=== PATIENT | male | born 1940 | race Caucasian/White ===

== ENCOUNTER 2017-04-21 14:00 | Inpatient (IN) | payer MEDICARE ==
[~2017-04-21] VITALS: Ht 175.3 cm; Wt 118.2 kg
[2017-04-21] MEDS ORDERED: ASPI325T PO (14:57)
[2017-04-21] MEDS ORDERED: LISI10TA2 PO (14:57)
[2017-04-21] MEDS ORDERED: CRES40TA PO (14:57)
[2017-04-21 16:02] LABS: METHADONE URINE NEGATIVE (NEGATIVE)
[2017-04-21 16:24] LABS: MEAN CORPUSCULAR HEMOGLOBIN 31.8 pg (27.0-33.0); MEAN CORPUSCULAR VOLUME 93.4 fl (80.0-96.0); RED CELL DISTRIBUTION WIDTH 12.3 % (11.5-14.5)
[2017-04-21 16:55] LABS: ALBUMIN 4.1 GM/DL (3.2-5.2); ALBUMIN/GLOBULIN RATIO 1.64 (1.00-1.93); ALKALINE PHOSPHATASE 61 U/L (45-117); ALT/SGPT 34 U/L (12-78); ANION GAP 8 MEQ/L (8-16); AST/SGOT 24 U/L (15-37); BILIRUBIN,DIRECT 0.2 MG/DL (0.0-0.2); BILIRUBIN,TOTAL 0.8 MG/DL (0.2-1.0); BLOOD UREA NITROGEN 16 MG/DL (7-18); CALCIUM LEVEL 8.8 MG/DL (8.8-10.2); CARBON DIOXIDE LEVEL 29 MEQ/L (21-32); CHLORIDE LEVEL 108 MEQ/L (98-107); CREATININE FOR GFR 1.03 MG/DL (0.70-1.30); GLOMERULAR FILTRATION RATE > 60.0 (>42); GLUCOSE, FASTING 92 MG/DL (83-110); POTASSIUM SERUM 4.4 MEQ/L (3.5-5.1); SODIUM LEVEL 145 MEQ/L (136-145); TOTAL PROTEIN 6.6 GM/DL (6.4-8.2)
[2017-04-21] MEDS ORDERED: ALEV220T22 PO (18:42)
[2017-04-21 19:06] VITALS: BP 151/67
[2017-04-21] MEDS ORDERED: MAALOX 30 ML SUSP *UDC PO PRN (20:30)
[2017-04-21] MEDS ORDERED: MOM 30ML SUSPENSION UDC PO PRN (20:30)
[2017-04-21] MEDS ORDERED: NITROGLYCERIN 0.4 MG SUBL TABLET SL PRN (20:30)
[2017-04-22 06:28] VITALS: BP 169/86
[2017-04-22] MEDS: ASPIRIN 325 MG TAB PO SCH (08:38)
[2017-04-22] MEDS: hydroCHLOROthiazide 12.5 MG CAPSULE PO SCH (08:38)
[2017-04-22] MEDS: LISINOPRIL 10 MG TAB PO SCH (08:38)
[2017-04-22] MEDS: ROSUVASTATIN 10 MG TAB (CRESTOR) PO SCH (08:39)
--- NOTE | 2017-04-22 10:31 | HPEPDOC ---
Medical History and Physical Date of Admission Apr 21, 2017 at 17:50 History and Physical PCP: Dr Remi Meyer [facility] Stock Raiser. Dr Rose ATTENDING: Dr. Alan Swain HPI: 76yoM admitted to [facility] for unspecified depressive disorder, being medically examined today. Patient states he injured his back in early April. Since April 10 he has been seeing a chiropractor which she states has been helping. Towards persistent low back pain. It radiates to the right hip area. He denies radiation of pain down the legs. Sometimes he feels weak in his legs. He denies numbness or tingling. He denies falls. He ambulates with assistance of a cane. He does not report neck pain. No weakness, numbness, or tingling in upper extremities. Denies any fevers, chills, weakness, fatigue, HAN, CP, SOB, cough, palpitations , abdominal pain, N/V/D or changes in bowel or bladder habits. PMHx: Hypertension Hyperlipidemia Osteoarthritis. Follows with [facility]. History of prostate cancer Depression CAD/DC/stent. CANNY. Poor dentition Unsteady gait, uses cane KAREN/CPAP Obesity. 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 Tobacco use: Denies ETOH: Denies Illicit Drugs: Denies IV Drug Use: Denies Tattoos done unprofessionally: Denies FAMHX: Mother: , CVA Father: , DC/CAD Siblings: One brother prostate cancer. Children: Alive, well Unexpected deaths due to medical reasons: None. ROS: As noted in HPI, otherwise 11pt ROS of systems reviewed and unremarkable. PE: GEN: 76 yo M, appears stated age. Well-nourished, well developed. No acute distress. Alert and oriented x 3. Pt is agitated at times. HEENT: Normocephalic, atraumatic. Pupils are equal, round, and reactive to light. Extraocular movements are intact. No nystagmus appreciated. Sclera are nonicteric. Conjunctiva without injection. Nose midline. Nasal turbinates without bogginess. EACs both patent BL. TMs both visualized and harry with good cone of light, no bulging or erythema. No facial asymmetry. Moist mucous membranes. Dentition poor. Pharynx pink and moist, no cobblestoning. Neck supple , trachea midline. No lymphadenopathy or thyromegaly appreciated. CHEST: Regular rate and rhythm, +S1, +S2 LUNGS: Clear to auscultation bilaterally. No wheezes, rales, or rhonchi. Breathing appears symmetric and easy. Patient is speaking in full sentences. No accessory muscle use. ABD: Round, soft, non-tender, non-distended. +Bowel sounds throughout. No rebound or guarding. No costovertebral angle tenderness. EXT: Varicose veins noted. Trace lower extremity edema appreciated left lower extremity. SKIN: [place], dry, warm. Capillary refill <2sec. No rashes. NEURO: Alert and oriented x 3. Cranial nerves III-XII are intact. No focal deficits appreciated. He is currently ambulating without any assistive devices. EKG: Pending. A&P: 76yoM admitted to [facility] for unspecified depressive disorder 1. Psych. Plan per Psychiatry. Obtain baseline EKG to assure the safety of psychiatric medications as they can prolong the QT interval. 2. CAD/DC/stent. Continue aspirin 325 mg daily. Continue statin. Continue Outpatient follow-up with cardiology. 3. Hypertension. Low-sodium diet. Continue lisinopril 10 mg daily, hydrochlorothiazide 12.5 mg daily. Patient appears compensated at this time. 4. Follow up with PCP on discharge. 5. Chronic venous insufficiency. Apply FLACA stockings if okay with psychiatry attending. 6. Poor dentition. Follow-up with dental provider at discharge. 7. Hyperlipidemia. Continue Crestor 40 mg daily. 8. Chronic back pain/right hip pain. Check x-ray of lumbosacral spine and right hip. Tylenol 650 mg every 6 hours as needed. Continue naproxen 500 mg twice a day as needed. 9. Osteoarthritis. Continue naproxen as above. 10. KAREN. Continue CPAP with home settings. 11. Obesity. BMI 38.5. Complicates care. FBS and TSH are noted within normal limits. 12. Unsteady gait. Patient ambulates with assistance of a cane at home. Request PT evaluation 13. Staff member Tanmay present throughout exam. Vital Signs Vital Signs Date Time Temp Pulse Resp B/P (MAP) Pulse Ox O2 Delivery O2 Flow Rate FiO2 04/22/17 08:38 169/86 04/22/17 06:28 98.7 58 18 04/21/17 19:06 97 Room Air Laboratory Data Labs 24H Laboratory Tests 2 04/21/17 14:30: Urine Amphetamines Screen NEGATIVE, Urine Benzodiazepines Screen NEGATIVE, Urine Opiates Screen NEGATIVE, Urine Methadone Screen NEGATIVE, Urine Barbiturates Screen NEGATIVE, Urine Phencyclidine Screen NEGATIVE, Urine Cocaine Metabolite Screen NEGATIVE, Urine Cannabinoids Screen NEGATIVE 04/21/17 16:04: Anion Gap 8, Glomerular Filtration Rate > 60.0, Calcium Level 8.8, Aspartate Amino Transf (AST/SGOT) 24, Alanine Aminotransferase (ALT/SGPT) 34, Alkaline Phosphatase 61, Total Bilirubin 0.8, Direct Bilirubin 0.2, Total Protein 6.6, Albumin 4.1, Albumin/Globulin Ratio 1.64, Thyroid Stimulating Hormone (TSH) 0.709, Salicylates Level < 1.7L, Acetaminophen Level < 2.0L, Ethyl Alcohol Level < 0.003 CBC/BMP Laboratory Tests 04/21/17 16:04 Red Blood Count 4.60, Mean Corpuscular Volume 93.4, Mean Corpuscular Hemoglobin 31.8, Mean Corpuscular Hemoglobin Concent 34.0, Red Cell Distribution Width 12.3 Home Medications Scheduled (Lisinopril/Hydrochlorothi 10-12.5 mg) 1 Tab Tab, 1 TAB PO DAILY LAST FILLED NOVEMBER 2016 AT [facility] Aspirin (Aspirin) 325 Mg Tab, 325 MG PO DAILY Rosuvastatin Calcium (Crestor) 40 Mg Tab, 40 MG PO DAILY LAST FILLED APR 2016 AT [facility] Scheduled PRN (Aleve Arthritis) 220 Mg Tab, 440 MG PO for ARTHRITIS Allergies Coded Allergies: Thimerosal (Verified Allergy, Intermediate, hives, 04/21/17) [place] (Verified Allergy, Unknown, diaphragm contractions, 04/21/17) Penicillins (Unverified Adverse Reaction, Unknown, "DOESN'T WORK", 04/21/17 ) Ina Rachel Apr 22, 2017 10:31
[2017-04-22] MEDS: NAPROXEN 250 MG TAB PO PRN ×2 (11:54→20:12)
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
--- NOTE | 2017-04-22 15:34 | REP ---
LUMBOSACRAL SPINE: Three views of the lumbosacral spine are performed in the AP and lateral projections. There is no compression fracture. There is normal lumbar lordosis and alignment. There is moderate diffuse spurring. There is moderate disc space narrowing, subchondral sclerosis, and vacuum phenomenon at L2-3 with mild disc space narrowing and vacuum at L4-5. There is mild narrowing and subchondral sclerosis at L5-S1 with sclerosis at the facet joints at that level. The posterior elements are intact. IMPRESSION: Diffuse degenerative changes without evidence of fracture or dislocation. Signed by Blanco Interiano MD 04/22/2017 04:47 P
--- NOTE | 2017-04-22 15:36 | REP ---
RIGHT HIP: Two views of the right hip are performed. I see no evidence of acute fracture or dislocation. There is a total hip prosthesis which appears to be in good position with no abnormal surrounding lucency. IMPRESSION: Right hip prosthesis. No fracture or dislocation. Signed by Blanco Interiano MD 04/22/2017 04:48 P
[2017-04-22 18:00] VITALS: BP 120/60
[2017-04-22] MEDS: traZODone 50 MG TAB PO PRN (21:57)
[2017-04-23 06:49] VITALS: BP 130/86
[2017-04-23] MEDS: ASPIRIN 325 MG TAB PO SCH (08:33)
[2017-04-23] MEDS: LISINOPRIL 10 MG TAB PO SCH (08:33)
[2017-04-23] MEDS: ROSUVASTATIN 10 MG TAB (CRESTOR) PO SCH (08:33)
[2017-04-23] MEDS: hydroCHLOROthiazide 12.5 MG CAPSULE PO SCH (08:34)
[2017-04-23] MEDS: NAPROXEN 250 MG TAB PO PRN ×2 (11:40→22:01)
--- NOTE | 2017-04-23 12:02 | ECGEPIP ---
Stationary ECG Study [facility] Test Date: 2017-04-22 Pat Name: RADHA BERNSTEIN Department: Room: [place] [address] Gender: M Accreditation Specialist: FREDERIC : 1940 Requested By: Ina Rachel Order Number: [id number] Reading MD: France Montgomery Measurements Intervals [place] Rate: 71 P: 10 OK: 150 QRS: -56 QRSD: 141 T: -7 QT: 409 QTc: 446 Interpretive Statements SINUS RHYTHM RIGHT BUNDLE BRANCH BLOCK LEFT ANTERIOR FASCICULAR BLOCK SIMILAR 01/21/16 Electronically Signed On 04-23-2017 12:01:59 EDT by France Montgomery
[2017-04-23 18:00] VITALS: BP 122/50
[2017-04-23] MEDS: traZODone 50 MG TAB PO PRN (22:00)
[2017-04-24 06:58] VITALS: BP 126/74
[2017-04-24] MEDS: ASPIRIN 325 MG TAB PO SCH (08:00)
[2017-04-24] MEDS: ROSUVASTATIN 10 MG TAB (CRESTOR) PO SCH (08:00)
[2017-04-24] MEDS: hydroCHLOROthiazide 12.5 MG CAPSULE PO SCH (08:00)
[2017-04-24] MEDS: LISINOPRIL 10 MG TAB PO SCH (08:00)
[2017-04-24 18:00] VITALS: BP 110/62
[2017-04-24] MEDS: traZODone 50 MG TAB PO PRN (21:49)
[2017-04-24] MEDS: NAPROXEN 250 MG TAB PO PRN (21:49)
[2017-04-25 06:34] VITALS: BP 118/72
[2017-04-25] MEDS ORDERED: CitaloPRAM (CeleXA) 20 MG TAB PO SCH (09:00)
[2017-04-25 09:49] VITALS: BP 118/72
[2017-04-25] MEDS: hydroCHLOROthiazide 12.5 MG CAPSULE PO SCH (09:49)
[2017-04-25] MEDS: ROSUVASTATIN 10 MG TAB (CRESTOR) PO SCH (09:49)
[2017-04-25] MEDS: ASPIRIN 325 MG TAB PO SCH (09:49)
[2017-04-25] MEDS: LISINOPRIL 10 MG TAB PO SCH (09:49)
--- NOTE | 2017-04-25 09:56 | MHIPN ---
DATE: 04/23/2017 CHIEF COMPLAINT: Feels stressed. SUBJECTIVE: Seen for followup, in the presence of staff. Says he feels stressed and that he ought not to be here, and that he has never been suicidal, that he has never intended harming himself. He related some of the events that lead to his being hospitalized, and difficulty with his partner, his financial commitments to daughter as well. He also says that he understands his daughter may be traveling here from [place], he has not seen her for 5 years. They have been estranged. He says he has supportive friends if it came to it. He is not sure if he will be able to return to his partner's place. She has not seen him since he has been here. He spoke of disputes that they has have, reiterating those outlined in the chart, when Nicole Garcia, nurse practitioner had interviewed him. Collateral information was also obtained, per that note, from his partner. Says sleep has been difficult because of the mattress. Appetite is fair. MENTAL STATUS EXAMINATION: He is fairly neat. He is cooperative. He appears overweight. No psychomotor retardation. He is coherent, mildly irritable at times, but generally appears relaxed. Denies any suicidal thoughts or intents. No homicidal ideas or intents. No evidence for any psychosis. Cognition is grossly intact. Judgment, insight are questionable. ASSESSMENT: Unspecified depressive disorder. Rule out major depressive disorder. It is possible he has difficulties with impulses. Displays narcissistic personality traits, the possibility of personality disorder also needs to be considered. PLAN: Continue current care and observations, he is quite okay with us obtaining further collateral information from his partner, or his daughter. He is to be encouraged to participate in activities in the unit, and collateral information, and assessment regarding his ability to maintain his safety, would be imperative prior to discharge. He is not sure if he is able to return to his partner's place. He does say if she agreed to start all over again, he would do that readily. VITAL SIGNS: Blood pressure 130/86, impulse 97, temperature 98. Further recommendations will be made depending on the clinical picture.
[2017-04-25] MEDS ORDERED: TRAZO50TA PO (12:23)
--- NOTE | 2017-04-25 15:06 | MHDSPDOC ---
[facility] Discharge Summary Discharge Summary DATE OF ADMISSION: Apr 21, 2017 at 17:50 DATE OF DISCHARGE: Apr 25, 2017 DISCHARGE DIAGNOSES: Impulse control disorder depressive disorder unspecified personality disorder with narcissistic traits. 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 CONSULTANTS INVOLVED: george TREATMENT AND PROGRESS ON THE UNIT : Pt made it quite clear from the beginning that he files lawsuits against everyone he disagrees with and our organization is no exception. 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 He indicated he had not been here for 24 hours and could already identify which staff were good and which were not. He had a litany of reasons the woman he lived with should not ask him to leave and also made it clear he had no intentions of harming himself or anyone else. pt was asked to secure housing prior to Tuesday so on Tuesday (04/25) he could be discharged. Pt declined medications stating they don't work and complained about pharmacy practices. He stated he head been prescribed medications but stopped them abruptly 2 months ago when dissatisfied with the pharmacy. ([facility]). [facility] and was unhappy with their recommendations and would not return. HOSPITAL COURSE: Mr. Lezama attended programing, got along well with others and on Tuesday described being here as "being on a vacation". He requested a neutral 3rd alliance party to come in and mediate his dispute with his house mate. He was informed that safety is our primary concern and was encouraged to secure a place to go. He said he would go to a Hotel but he didn't know which one. He was asked to inform commercial loan underwriter when he decided. When KSP spoke with him he said he would be staying with friends in [facility] and signed a release so we could verify this. The owners of the home confirmed there are weapons in their house but they are stored in a gun safe with a combination lock and the only way to get in is with the combination. Pt does not have that information and Ms. Danielson was certain Mr. Santizo would not be able to access them. She said only her knows the combination. She added they have known each other for many years and she believes all of this is an unfortunate incident and he made this statement "in the heat of the moment". Ms. Danielson added, "he would never do anything like that". DISCHARGE ASSESSMENT: Pt is not a DTS or DTO. Pt is likely suffering from depression and should not have stopped his medications. Pt is now rethinking this and gave commercial loan underwriter permission to restart his meds. Wellbutrin XL 150 mg 3 tabs in a.m. ordered for 7 days with 5 refills and Citalopram 20 mg q a.m. for 7 days with 5 refills sent to his pharmacy. He was asked to consider therapy but he stated he did not need it. Powerbuilder explained if he changed his mind he can contact [facility] or return to the [place]. Pt verbalized understanding of these things. MENTAL STATUS EXAMINATION ON DISCHARGE: Patient is a 76-year old male, who is medium frame, short stature, uses cane, white hair and glasses. Speech is spontaneous. Language skills are good. Thought processes including: goal directed. Thought content: appropriate. Abstract reasoning, and computation: good. Description of associations: good. Description of abnormal or psychotic thoughts: none. Judgment: fair Insight: poor Orientation to all spheres is good. Recent and remote memory: intact. Attention span and concentration: good. Fund of knowledge: Full. Mood: anxious. Affect: congruent MEDICATIONS ON DISCHARGE: pt stopped all meds 2 months prior to hospitalization. Did not see any benefit in them. Was not prescribed any while here as he did not want to take any. He did make use of trazodone and that prescription was sent to [facility]. trazodone 50 mg prn insomnia. PLAN/FOLLOWUP ARRANGEMENTS: It is recommended pt seek therapy for his problems related to relationships with family and friends. Powerbuilder contacted Patrica Danielson, friend at [phone] who indicated Mr. Santizo was planning to stay with her and her at their home follow his discharge from the hospital. That is fine with them. She states they have known each other for years. They reside in [facility]. Marylou Rose was also contacted regarding pts discharge to advise her he would be leaving the hospital since she had verbalized some concern over her safety related to her relationship with pt. According to the DCP who spoke with Ms. Rose, she has had contact with the [facility] about eviction of Mr. Lezama. It is our understanding he plans on arriving at Ms. Rose' home with a moving vehicle and a friend and will remove his personal belongings from her home. The amount of time spent in the coordination of care for this patient was approximately 30 minutes. Vital Signs/I&Os Vital Signs Date Time Temp Pulse Resp B/P (MAP) Pulse Ox O2 Delivery O2 Flow Rate FiO2 04/25/17 09:49 118/72 04/25/17 06:34 97.3 60 18 04/23/17 09:26 Room Air 04/21/17 19:06 97 Medications Scheduled (Lisinopril/Hydrochlorothi 10-12.5 mg) 1 Tab Tab, 1 TAB PO DAILY, (Reported) LAST FILLED NOVEMBER 2016 AT [facility] Aspirin (Aspirin) 325 Mg Tab, 325 MG PO DAILY, (Reported) Bupropion Hcl (Bupropion HCl Xl) 150 Mg Tab, 450 MG PO QAM for DEPRESSION for 7 Days, #21 Citalopram Hydrobromide (Celexa) 20 Mg Tab, 20 MG PO QAM for ANXIETY for 7 Days , #7 Rosuvastatin Calcium (Crestor) 40 Mg Tab, 40 MG PO DAILY, (Reported) LAST FILLED APR 2016 AT [facility] Scheduled PRN (Aleve Arthritis) 220 Mg Tab, 440 MG PO for ARTHRITIS, (Reported) Trazodone HCl (Trazodone HCl) 50 Mg Tab, 50 MG PO QHSP PRN for INSOMNIA for 7 Days, #7 take only when needed for insomnia Allergies Coded Allergies: Thimerosal (Verified Allergy, Intermediate, hives, 04/21/17) [place] (Verified Allergy, Unknown, diaphragm contractions, 04/21/17) Penicillins (Unverified Adverse Reaction, Unknown, "DOESN'T WORK", 04/21/17 ) Nicole Garcia Apr 25, 2017 15:06
[2017-04-25] MEDS ORDERED: BUPR150T3 PO (15:48)
[2017-04-25] MEDS ORDERED: CELE20TA PO (15:48)
--- NOTE | 2017-04-26 06:41 | MHIPN ---
DATE OF VISIT: 04/24/2017 CHIEF COMPLAINT: Says he feels okay. SUBJECTIVE: Seen for followup, in the presence of staff. Says he feels okay, and that he had a better night, and he slept reasonably well. Appetite has been okay. He spoke of trying to deal with various concerns he has since the breakup of his relationship, says he has obtained various numbers from his phone and will be planning to contact various people, including his research attorney who he says he has been in touch with, all related to the dispute between him and his partner. He suggests he will be taking matters further, through the courts, should he find that his property and belongings have been interfered with without his permission. 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 MENTAL STATUS EXAM: He is neat, he is cooperative, he is coherent, no agitation, no psychomotor retardation. He is less irritable than when seen yesterday, with relatively broad affect. He denies any suicidal thoughts or intents. No homicidal ideas or intents. Currently no evidence of any psychosis. Cognition is grossly intact. Judgment is fair. ASSESSMENT: Other specified depressive disorder, rule out major depressive disorder. PLAN: Continue current care and observation, obtain collateral information as necessary. He had questions as to whether anyone had spoken with his ex-partner. I informed him that the nurse practitioner's note indicates that the staff had, in fact, spoken with her, and had noted her version of events. We did not go into details, but there are discrepancies between his perception and hers. He wondered if there was a meeting being arranged regarding these disputes. I informed him I was not aware of that, but that if one were, discharge planning and the treatment team will inform him tomorrow (tomorrow is Tuesday) and that it ought to take place only with his consent. He is made aware, it is emphasized prior to this discharge the treatment team, the assigned clinicians and the discharge plan will be assessing the safe discharge. He says if it came to it, he could stay with friends. This is to be explored further. His questions are answered. VITAL SIGNS: Blood pressure 126/74, pulse 100, temperature 97.4.
[2017-04-26] MEDS ORDERED: buPROPion **XL** TABLET 150MG (WELLBUTRIN XL) PO SCH ×2 (09:00)
[2017-04-26] MEDS ORDERED: CitaloPRAM (CeleXA) 20 MG TAB PO SCH (09:00)
== END 2017-04-25 16:00 | disposition home or self-care (01) | DRG 886 ==
LOC: M ED 14:00 → M ED INP 17:50 → M PSY 19:00
PROVIDERS: ADMIT Psychiatry & Neurology Psychiatry; ATTEND Psychiatry & Neurology Psychiatry
DX: F63.9 Impulse disorder, unspecified (principal); F32.9 Major depressive disorder, single episode, unspecified; F60.81 Narcissistic personality disorder; Z79.899 Other long term (current) drug therapy; Z79.82 Long term (current) use of aspirin; Z88.0 Allergy status to penicillin; Z88.8 Allergy status to other drugs, medicaments and biological substances; Z91.018 Allergy to other foods; I10 Essential (primary) hypertension; E78.5 Hyperlipidemia, unspecified; M19.90 Unspecified osteoarthritis, unspecified site; I25.10 Atherosclerotic heart disease of native coronary artery without angina pectoris; I25.2 Old myocardial infarction; E66.9 Obesity, unspecified; G47.33 Obstructive sleep apnea (adult) (pediatric); R26.89 Other abnormalities of gait and mobility; Z68.38 Body mass index [BMI] 38.0-38.9, adult; Z85.46 Personal history of malignant neoplasm of prostate; M54.5 Low back pain; I87.2 Venous insufficiency (chronic) (peripheral)

== ENCOUNTER 2017-04-27 13:53 | Emergency (ER) | payer MEDICARE ==
[~2017-04-27] VITALS: Ht 177.8 cm; Wt 115.9 kg
[~2017-04-27 13:53] MED LIST: ALEV220T22 PO; ASPI325T PO; BUPR150T3 PO; CELE20TA PO; CRES40TA PO; LISI10TA2 PO; TRAZO50TA PO
[2017-04-27 16:40] VITALS: BP 128/78
== END 2017-04-27 16:57 | disposition home or self-care (01) ==
LOC: M ED 13:53
DX: Z04.8 Encounter for examination and observation for other specified reasons (principal); F22 Delusional disorders; E11.9 Type 2 diabetes mellitus without complications; I25.9 Chronic ischemic heart disease, unspecified; Z85.46 Personal history of malignant neoplasm of prostate

== ENCOUNTER → 2018-03-24 | Outpatient (CLI) | payer MEDICARE ==
[2018-03-24 15:45] LABS: PSA SCREENING 4.24 NG/ML (< 4.0)
== END ==
LOC: M LAB 14:38
DX: C61 Malignant neoplasm of prostate (principal)
CPT/HCPCS: G0103

== ENCOUNTER → 2019-04-24 | Outpatient (CLI) | payer MEDICARE ==
[~2019-04-24] MED LIST changes: +ASPI-1 PO; -ASPI325T PO; +LISI10TA15 PO; -LISI10TA2 PO; +TRAZ1TAB10 PO; -TRAZO50TA PO
[2019-04-24 16:12] LABS: CALCIUM LEVEL 9.2 MG/DL (8.8-10.2); CREATININE FOR GFR 1.43 MG/DL (0.70-1.30); GLOMERULAR FILTRATION RATE 51.2 (>42); POTASSIUM SERUM 4.3 MEQ/L (3.5-5.1)
== END ==
LOC: M LAB 15:07
PROVIDERS: ATTEND General Practice
DX: I11.9 Hypertensive heart disease without heart failure (principal)

== ENCOUNTER → 2020-03-06 | Outpatient (CLI) | payer MEDICARE ==
[2020-03-06 11:24] LABS: ALBUMIN 3.8 GM/DL (3.2-5.2); ALT/SGPT 47 U/L (12-78); BILIRUBIN,TOTAL 0.6 MG/DL (0.2-1.0); BLOOD UREA NITROGEN 18 MG/DL (7-18); CALCIUM LEVEL 8.8 MG/DL (8.8-10.2); CARBON DIOXIDE LEVEL 27 MEQ/L (21-32); CHLORIDE LEVEL 108 MEQ/L (98-107); CHOLESTEROL LEVEL 176 MG/DL (<200); CREATININE FOR GFR 1.15 MG/DL (0.70-1.30); GLOMERULAR FILTRATION RATE > 60.0 (>42); GLUCOSE, FASTING 82 MG/DL (70-100); HDL CHOLESTEROL 51 MG/DL (>40); LDL CHOLESTEROL 100 MG/DL (<100); NON-HDL-C 125 MG/DL; POTASSIUM SERUM 4.2 MEQ/L (3.5-5.1); PROSTATIC SPECIFIC AG MONITOR 4.63 NG/ML (< 4.00); SODIUM LEVEL 141 MEQ/L (136-145); TOTAL PROTEIN 6.3 GM/DL (6.4-8.2); TRIGLYCERIDES LEVEL 123 MG/DL (<150)
[2020-03-11 16:09] LABS: CHROMIUM PLASMA 0.8 ug/L (0.1-2.1)
== END ==
LOC: M LAB 10:01
PROVIDERS: ATTEND General Practice
DX: Z96.649 Presence of unspecified artificial hip joint (principal); Z79.899 Other long term (current) drug therapy

== ENCOUNTER → 2020-04-09 | Outpatient (CLI) | payer MEDICARE | LOC: M LAB 13:25 | PROVIDERS: ATTEND Orthopaedic Surgery | DX: M25.551 Pain in right hip (principal); Z96.649 Presence of unspecified artificial hip joint ==

== ENCOUNTER → 2020-05-15 | Outpatient (CLI) | payer MEDICARE | LOC: M LAB 15:36 | PROVIDERS: ATTEND Orthopaedic Surgery | DX: M25.551 Pain in right hip (principal); Z96.649 Presence of unspecified artificial hip joint ==

== ENCOUNTER → 2020-11-17 | Outpatient (CLI) | payer MEDICARE ==
[~2020-11-17] MED LIST changes: +BUPR150T12 PO; -BUPR150T3 PO
--- NOTE | 2020-11-17 16:29 | REP ---
INDICATION: CKD STAGE 3. COMPARISON: None. TECHNIQUE: Multiple ultrasonographic images of the kidneys. FINDINGS: The right kidney measures 11.7 x 4.9 x 6.5 cm. The left kidney measures 11.2 x 5.2 x 6.1 cm. The kidneys are normal size. Renal cortical echogenicity is increased bilaterally. This is compatible with medical renal disease. There is no hydronephrosis on the right or the left. There are no renal calculi in the left or the right. There is a cyst medially in the right kidney measuring up to 2.0 cm. There is a cyst medially in the left kidney measuring up to 1.5 cm. There is a cyst laterally in the left kidney measuring up to 1.6 cm. No solid renal masses are identified. IMPRESSION: The kidneys are normal size. There is bilateral renal cortical echogenicity compatible with medical renal disease. There are bilateral renal cysts as described. No renal cysts solid masses are identified. No renal calculi are identified. No hydronephrosis is identified. <Electronically signed by Blanco Burch > 11/17/20 [id number]
--- NOTE | 2020-11-17 17:19 | REP ---
INDICATION: CKD STAGE 3. COMPARISON: None. TECHNIQUE: Multiple ultrasonographic images of the bladder. FINDINGS: The prevoid bladder measures 7.4 x 6.2 x 5.2 cm for a volume 156 mL. The patient was able to void and the postvoid bladder volume is in the same as the prevoid volume. The prevoid bladder residual is 100%. Bladder wall thickness is a 4.7 mm. The bladder wall appears diffusely thickened. This is nonspecific and could be from incomplete bladder distention, inflammation or neoplasm. With the Doppler assessment we are unable to identify right or left ureteral jets into the bladder. IMPRESSION: Incomplete bladder distention. 100% bladder postvoid residual. Bladder wall is diffusely thickened. This is nonspecific as described. Ureteral jets into the bladder could not be identified. <Electronically signed by Blanco Burch > 11/17/20 [id number]
== END ==
LOC: M RAD 12:03
PROVIDERS: ATTEND Internal Medicine Nephrology
DX: N18.31 Chronic kidney disease, stage 3a (principal); N32.89 Other specified disorders of bladder; N28.1 Cyst of kidney, acquired

== ENCOUNTER → 2021-06-17 | Outpatient (CLI) | payer MEDICARE ==
[~2021-06-17] MED LIST changes: +ACET650T15 PO; +AVOD0.5C PO; +DIPH50CA PO; +FLOM0.4C39 PO; +FURO20TA2 PO; +MELA10TA2 PO; +TRUL0.5I SC
== END ==
LOC: M LABSMTC 10:07
PROVIDERS: ATTEND Anesthesiology
DX: Z01.812 Encounter for preprocedural laboratory examination (principal); Z20.822 Contact with and (suspected) exposure to COVID-19

== ENCOUNTER 2021-06-22 06:57 | Day surgery (SDC) | payer MEDICARE ==
[~2021-06-22] VITALS: Ht 172.7 cm; Wt 111.9 kg
[~2021-06-22 06:57] MED LIST changes: +NS 1,000 ML IV ONE
--- OUTSIDE RECORDS SUMMARY | 2021-06-22 07:00 | CCD | Continuity of Care Document ---
Author Author Gael BIGGS MD Organization Unknown Address [address] [place] [id number] Phone [phone] Care Team Providers Care Transit Man Name Role Phone Remi Meyer M.D. AUTM [phone] Wesley Juarez M.D. AUTM [phone] Addis Moreira M.D. AUTM [phone] Bairon Boswell M.D. AUTM Problems Active Problems Provider Date Malignant tumor of prostate Calderon Biggs MD Onset: 01/03 Increased frequency of urination Calderon Biggs MD Onset: 03/12/2013 Balanitis xerotica obliterans Calderon Biggs MD Onset: Social History Type Date Description Comments Sex Unknown Tobacco Use Start: Unknown End: Unknown Former Cigarette Smo ker 30 PACK YR SMOKER Smoking Status Reviewed: 04/20/21 Former Cigarette Smoker 30 PA CK YR SMOKER ETOH Use Patient denies alcohol use Allergies, Adverse Reactions, Alerts Active Allergies Reaction Severity Comments Date Penicillin not an allergy per patient- medication just does not w ork 06/09/2007 [place] Extract 04/12/2019 Thimerosal 04/12/2019 Medications Active Medications SIG Qnty Indications Ordering Provide r Date Avodart 0.5mg Capsules 1 by mouth every day 30 minutes after meal 90caplit Biggs MD 0 04/20/2021 Flomax 0.4mg Capsules 1 by mouth every day 30caplit Biggs MD 04/12/2019 Cetirizine HCL 10mg Tablets 1 by mouth every day Unknown Aleve 220mg Capsules 1 by mouth q12 hours as needed for pain Unknown Diphenhydramine HCL 50mg Capsules 2 tabs at bedtime prn Unknown Stool Softener 100mg Capsules 1 by mouth every day Unknown Turmeric 500mg Capsules Unknown Vitamin C 1000mg Tablets take 1 by oral route every day Unknown Super B-Complex Capsules Unknown Vitamin D3 5000Unit Tablets 1 by mouth every day Unknown Centrum Silver Adult 50+ Adult 50 Tablets Unknown Iron 325(65Fe) mg Tablets 1 by mouth every day Unknown Nitrostat 0.4mg Tablets Sub 1 sl as needed chest pain q5 min (max 3tabs in 15 min) Unknown Ketoconazole 2% Remi Cabrera M.D. Bupropion Hydrochloride ER (XL) 150mg Tablets ER 24HR Unknown Bupropion Hydrochloride ER (XL) 300mg Tablets ER 24HR Unknown Trulicity 0.75mg/0.5 ML Solution Pen-Inject Inject 1 Dose Subcutaneously Once A Week Unknown Furosemide 20mg Tablets Take 1 Tablet By Mouth Once Daily Unknown Preservision Areds 2 Areds 2 Capsu les take 1 capsule by mouth two times a day for supplement Unknown Lisinopril/Hydrochlorothiazide 10-12.5mg Tablets Unknown Crestor 20mg Tablets Unknown Aspirin 325 Unknown Medications Administered in Office Medication SIG Qnty Indications Ordering Provider Date Gentamicin (Hospira) Up To 80MG Dose, 80 MG/2ML Single-Dose Vial Injection Calderon garg MD 01/18/2012 Immunizations Description No Information Available Vital Signs Date Vital Result Comment 04/20/2021 11:09am Height 68 inches 5'8" Weight 251.00 lb Weight 113.854 kg BMI (Body Mass Index) 38.2 kg/m2 BP Systolic 102 mmHg BP Diastolic 67 mmHg Heart Rate 83 /min Post Void Residual ml 193 Bladder Scanner, I ndication: retention 04/18/2020 10:03am Height 68 inches 5'8" Weight 261.00 lb Weight 118.390 kg BMI (Body Mass Index) 39.7 kg/m2 BP Systolic 122 mmHg BP Diastolic 69 mmHg Heart Rate 86 /min Results Test Acquired Date Facility Test Result H/L Range Note 230 Ua Routine 04/20/2021 [facility] REF TO ADDRESS ON ORDER FOR (315)- - Ua Glucose Negative Ua Protein Negative Ua Nitrite Negative Ua Leuko Small Ua Blood Negative Ua Color Not Entered Ua Ketones Negative Ua Clarity Not Entered Ua Specific [place] 1.020 1.003-1.030 Ua PH 5.0 5.0-7.5 Ua Bilirubin Negative Ua Urobilinogen 0.2 E.U./dL 0.0-1.0 Laboratory test finding 04/14/2021 [facility] [address] [place] [address] [phone] Total Psa Only 4.98 ng/mL High 0.00-4.10 BUN And Creatinine 04/14/2021 [facility] [address] [place] [address] [phone] BUN 43.0 mg/dL High 7.0-24.0 #Creat 04[facility]14[facility]2021 [facility] [address] [place] [address] [phone] Creatinine 1.99 mg/dL High 0.72-1.25 eGFR - Descent 38.5 Low >60.0 eGFR -- Non- Descent 31.7 Low >60.0 Procedures Date Code Description Status 04/20/2021 28220 Office/Outpatient Established Mo d MDM 30-39 Min Completed 04/20/2021 59178 Bladder Scan, Post Voiding Resid ual Urine Completed Medical Devices Description No Information Available Encounters Type Date Location Provider Dx Diagnosis Office Visit 04/20/2021 11:15a [facility] Calderon Biggs MD C61 Malignant neoplasm of prosta te N40.1 Benign prostatic hyperplasia with lower urinary tract symp R39.12 Poor urinary stream Assessments Date Code Description Provider 04/20/2021 C61 Malignant neoplasm of prostate Blayne Biggs MD 04/20/2021 N40.1 Benign prostatic hyperplasia wit h lower urinary tract symptoms Calderon Biggs MD 04/20/2021 R39.12 Poor urinary stream Calderon pereyra MD 04/14/2021 C61 Malignant neoplasm of prostate N [facility] 04/14/2021 Z01.812 Encounter for preprocedural labo ratory examination [facility] 04/14/2021 C61 Malignant neoplasm of prostate B vernell Champagne MD 04/14/2021 Z01.812 Encounter for preprocedural labo ratory examination Jimmy Champagne MD Plan of Treatment Future Appointment(s):* 11/02/2021 11:00 am - Calderon Biggs MD at [facility] 04/20/2021 - Calderon Biggs MD* C61 Malignant neoplasm of prostate* Comments: * Patient will continue on surveillance for prostate cancer. Last biopsy was a while ago but I certainly do not think another biopsy is warranted at this point. His PSA is stable. His MRI does not show any high-grade lesions. I find it highly unlikely that he is harboring clinically significant prostate cancer at this time. I certainly would not recommend another biopsy especially given his very significant medical comorbidities. * N40.1 Benign prostatic hyperplasia with lower urinary tract symptoms* Comments:* Currently on Flomax. Prostate is been measured at greater than 120 cc. Sometimes his flow is okay sometimes it is slow. I will get him started on Avodart at this point.His postvoid residual is about 100 cc. Therefore no evidence for retention. * R39.12 Poor urinary stream Functional Status Description No Information Available Mental Status Description No Information Available Referrals Description No Information Available
--- OUTSIDE RECORDS SUMMARY | 2021-06-22 07:00 | CCD ---
Author Author [facility] acuse Organization [facility] acuse Address Unknown Phone Unavailable Care Team Providers Care Frame Operator Name Role Phone MEAGAN BAILEY Unavailable PROBLEMS Type Condition ICD9-CM Code ACF80-BT Code Onset Dates Condition S tatus W/U Status Risk SNOMED Code Notes Problem Localized edema R60.0 Active confirmed 7914 003 He does have some varicose veins in the lower extremities that increases predilection for lower extremity edema. Urinalysis did not show proteinuria. The importance of dietary sodium restriction was discussed. He will continue with thiazide diuretic therapy. He continue to use furosemide only as needed for severe lower extremity edema. He is to continue to avoid nonsteroidal drugs as this can c ause lower extremity edema. Problem Chronic Kidney Disease Stage 3, GFR 59-45 N18.31 Active confirmed Stage III chronic kidney disease most li kian secondary to NSAID use with a component of prerenal azotemia. He has prostate cancer with a post void residual volume of 150 mL from my initial assessment.He will continue with the use of his GERARD inhibitor as well as hydrochlorothiazide as a diuretic. This will be helpful in treating hypertension.Continue with efforts of good glycemic and blood pressure control as well as the consistent the use of his GERARD inhibitor. Avoid nephrotoxic agents like nonsteroidal anti-inflammatory drugs. Problem Obesity, unspecified E66.9 Active confirmed [id number] Weight loss strategies including caloric accountability (watching portion size and caloric content of food) and physical activity was discussed in the office today. Problem Hypertensive chronic kidney disease with stage 1 through stage 4 chronic kidney disease, or unspecified chronic kidney disease I12.9 Active confirmed [id number] Blood pressure contr ol is satisfactory. He will continue his current antihypertensive treatment regimen other than the discontinuation of furosemide. We discussed nonpharmacological measures like dietary sodium restriction and weight loss. ALLERGIES Allergen (clinical drug ingredient) Drug/Non Drug Allergy do cumented on EMR Reaction Allergy Type Onset Date Status Mercury Mercury Rash Non Drug Allergy Active Cucumbers Diaphramatic contractions per patient. Non Drug Allergy Active ENCOUNTERS from 1942 to 2021-05-18 Encounter Location Date Provider Diagnosis .[facility] [address] [facility] [address] [place], [place] [id number] May, [place] IMMUNIZATIONS No Information SOCIAL HISTORY Tobacco Use: Social History Observation Description Date Details (start date - stop date) Former Smoker Sex Assigned At : Social History Observation Description Sex Assigned At Unknown Smoking Question Answer Notes Status: former smoker Quit smoking in 2005 . Smoked for 30 years REASON FOR REFERRAL No Information VITAL SIGNS No information MEDICATIONS Medication SIG (Take, Route, Frequency, Duration) Notes Start Da te End Date Status Tylenol 325 MG 2 tablets as needed Orally every 4 hrs Active Nizoral A-D 1 % 1 application as needed Externally Active diphenhydrAMINE HCl 25 MG 2 tablets at bedtime as needed Orally Onc e a day Active CPAP at night Active Crestor 40 MG 1 tablet Orally Once a day for 30 day(s) Active Lisinopril-hydroCHLOROthiazide 20-25 MG 1 tablet Orall y Once a day for 30 day(s) Active Melatonin 10 MG 2 capsules at bedtime as needed Orally Active Nitrostat 0.4 MG as directed Sublingual Active Aspirin 325 MG 1 tablet Orally Once a day for 30 day(s) Active Flomax 0.4 MG 1 capsule Orally Once a day for 30 day(s) Active Tumeric 2 capsules Once a day 500 mg Act art Furosemide 20 MG 1 tablet Orally Once a day for 30 day(s) PRN Mar, Active Vitamin E 200 UNIT 1 capsule Orally Once a day for 30 day(s) Active Vitamin C 1000 MG 1 tablet Orally Once a day Active Trulicity 1.5 MG/0.5ML as directed Subcutaneous once a week Active Ketoconazole 2 % 1 application Externally Once a day Active Afrin 12 Hour 0.05 % 2 sprays in each nostril as needed Nasally Twice a day for 3 day(s) Active PreserVision AREDS - as directed Orally Active Cetirizine HCl 10 MG 2 tablets Orally Once a day Active Super B Complex 2 tablets Active Stool Softener 100 MG 2 capsules as needed Orally Once a day as neede d Active buPROPion HCl ER (Smoking Det) 150 MG 1 tablet in the morning Orally Once a day for 30 day(s) Active buPROPion HCl ER (XL) 300 MG 1 tablet in the morning O rally Once a day for 30 day(s) 450 mg once a day Active Iron 325 (65 Fe) MG 1 tablet Orally Once a day for 30 day(s) Active Centrum Silver - as directed Orally Active PROCEDURES No Information RESULTS No Results REASON FOR VISIT Re:RE:Medication Concern RE: GI Exam MEDICAL (GENERAL) HISTORY Type Description Date Medical History Stage III chronic kidney disease Medical History Morbid obesity Medical History CAD status post PTCA with stenting. Medical History Diabetes Mellitus Type 2 diagnosed in 22 01. No retinopathy. Medical History Prostate cancer Medical History IBS Medical History Obstructive Sleep apnea Medical History [facility] Medical History Hypertension Medical History Bipolar affect, depressed Medical History Hyperlipidemia Medical History Low back pain Medical History Other MD: Remi Meyer MD Medical History Had Interana vaccines -11/14, 12/05/20 Surgical History Septoplasty 1999 Surgical History Prostate biopsy 2002 Surgical History L Hip Arthroplasty Surgical History R Hip Arthroscopy Goals Section No Information Health Concerns No Information MEDICAL EQUIPMENT No Information MENTAL STATUS No Information FUNCTIONAL STATUS No Information ASSESSMENTS No Information PLAN OF TREATMENT Next Appt Details Provider Name:HOMERO GONZALEZ, 2021-08-04 10:40:00 AM, [address] [facility], [place] [address], [place], [place], [id number], Insurance Providers Payer Name Payer Address Payer Phone Insured Name Patient Relati onship to Insured Coverage Start Date Coverage End Date [employer] PPO [address] [address] [place] [address] RADHA BERNSTEIN self
--- OUTSIDE RECORDS SUMMARY | 2021-06-22 07:00 | CCD | Continuity of Care Document ---
Author Author Gael BIGGS MD Organization Unknown Address [address] [place] [address] Phone [phone] Care Team Providers Care Professional Bass Fisherman Name Role Phone Remi Meyer M.D. AUTM [phone] Wesley Juarez M.D. AUTM [phone] Addis Moreira M.D. AUTM [phone] Bairon Boswell M.D. AUTM Problems Active Problems [...] medication just does not w ork 06/09/2007 [place] Extract 04/12/2019 Thimerosal 04/12/2019 Medications Active Medications SIG Qnty Indications Ordering Provide r Date Avodart 0.5mg Capsules 1 by mouth every day 30 minutes after meal 90pollo Biggs MD 0 04/20/2021 Flomax 0.4mg Capsules [...] Negative Ua Clarity Not Entered Ua Specific [place] 1.020 1.003-1.030 Ua PH 5.0 5.0-7.5 Ua Bilirubin Negative Ua Urobilinogen 0.2 E.U./dL 0.0-1.0 Laboratory test finding 04/14/2021 [facility] [address] [place] [address] [phone] Total Psa Only 4.98 ng/mL High 0.00-4.10 BUN And Creatinine 04/14/2021 [facility] [address] [place] [address] [phone] BUN 43.0 mg/dL High 7.0-24.0 #Creat 04/14/2021 [facility] [address] [place] [address] [phone] Creatinine 1.99 mg/dL High 0.72-1.25 eGFR - Descent 38.5 Low >60.0 eGFR -- Non- Descent 31.7 Low >60.0 Procedures Date Code Description Status 04/20/2021 78720 Office/Outpatient Established Mo d MDM 30-39 Min Completed 04/20/2021 85971 Bladder Scan, Post Voiding Resid ual Urine Completed Medical Devices Description No Information Available Encounters Type Date Location Provider Dx Diagnosis Office Visit 04/20/2021 11:15a [facility]/ [facility] Calderon Biggs MD [...] MD 04/14/2021 C61 Malignant neoplasm of prostate E flory Biggs MD 04/14/2021 C61 Malignant neoplasm of prostate N M Lab 04/14/2021 Z01.812 Encounter for preprocedural labo ratory examination Calderon Biggs MD 04/14/2021 Z01.812 Encounter for preprocedural labo ratory examination NM Lab 04/14/2021 C61 Malignant neoplasm of prostate B vernell Champagne MD 04/14/2021 Z01.812 Encounter for preprocedural labo ratory examination Jimmy Champagne MD Plan of Treatment Future Appointment(s):* 11/02/2021 11:00 am - Calderon Biggs MD at [facility]/ [facility] Urology 04/20/2021 - Calderon [...]
--- OUTSIDE RECORDS SUMMARY | 2021-06-22 07:00 | CCD | Continuity of Care Document ---
Author Author Gael Meehan Organization Unknown Address [address] [place] [address] Phone [phone] Care Team Providers Care Sequins Stringer Name Role Phone Remi Meyer M.D. AUTM [phone] Wesley Juarez M.D. AUTM [phone] Addis Moreira M.D. AUTM [phone] Bairon Boswell M.D. AUTM Problems Active Problems [...] medication just does not w ork 06/09/2007 [place] Extract 04/12/2019 Thimerosal 04/12/2019 Medications Active Medications SIG Qnty Indications Ordering Provide r Date Avodart 0.5mg Capsules 1 by mouth every day 30 minutes after meal 90pollo Biggs MD 0 04/20/2021 Flomax 0.4mg Capsules 1 by mouth every day 30pollo Biggs MD 04/12/2019 Cetirizine HCL 10mg Tablets [...] Negative Ua Clarity Not Entered Ua Specific [place] 1.020 1.003-1.030 Ua PH 5.0 5.0-7.5 Ua Bilirubin Negative Ua Urobilinogen 0.2 E.U./dL 0.0-1.0 Laboratory test finding 04/14/2021 [facility] [address] [place] [address] [phone] Total Psa Only 4.98 ng/mL High 0.00-4.10 BUN And Creatinine 04/14/2021 [facility] [address] [place] [address] [phone] BUN 43.0 mg/dL High 7.0-24.0 #Creat 04/14/2021 [facility] [address] [place] [address] [phone] Creatinine 1.99 mg/dL High 0.72-1.25 eGFR - Descent 38.5 Low >60.0 eGFR -- Non- Descent 31.7 Low >60.0 Procedures Date Code Description Status 04/20/2021 42978 Office/Outpatient Established Mo d MDM 30-39 Min Completed 04/20/2021 92434 Bladder Scan, Post Voiding Resid ual Urine Completed Medical Devices Description No Information Available Encounters Type Date Location Provider Dx Diagnosis Office Visit 04/20/2021 11:15a [facility]/ [facility]rology Calderon Biggs MD C61 Malignant neoplasm of prosta te N40.1 Benign prostatic hyperplasia with lower urinary tract symp R39.12 Poor urinary stream Assessments Date Code Description Provider 04/20/2021 C61 Malignant neoplasm of prostate E flory Biggs MD 04/20/2021 N40.1 Benign prostatic hyperplasia [...] 11:00 am - Calderon Biggs MD at [facility]/ [facility]rology 04/20/2021 - Calderon Biggs MD* [...]
--- OUTSIDE RECORDS SUMMARY | 2021-06-22 07:00 | CCD | Continuity of Care Document ---
Author Author Gael BIGGS MD Organization Unknown Address [address] [place] [address] Phone [phone] Care Team Providers Care Ruling Technician Name Role Phone Remi Meyer M.D. AUTM [phone] Wesley Juarez M.D. AUTM [phone] Addis Moreira M.D. AUTM [phone] Bairon Boswell M.D. AUTM Problems Active Problems [...] medication just does not w ork 06/09/2007 [place] Extract 04/12/2019 Thimerosal 04/12/2019 Medications Active Medications [...] Negative Ua Clarity Not Entered Ua Specific [place] 1.020 1.003-1.030 Ua PH 5.0 5.0-7.5 Ua Bilirubin Negative Ua Urobilinogen 0.2 E.U./dL 0.0-1.0 Laboratory test finding 04/14/2021 [facility] [address] [place] [address] [phone] Total Psa Only 4.98 ng/mL High 0.00-4.10 BUN And Creatinine 04/14/2021 [facility] [address] [place] [address] [phone] BUN 43.0 mg/dL High 7.0-24.0 #Creat 04/14/2021 [facility] [address] [place] [address] [phone] Creatinine 1.99 mg/dL High 0.72-1.25 eGFR - Descent 38.5 Low >60.0 eGFR -- Non- Descent 31.7 Low >60.0 Procedures Date Code Description Status 04/20/2021 35429 Office/Outpatient Established Mo d MDM 30-39 Min Completed 04/20/2021 99638 Bladder Scan, Post Voiding Resid ual Urine Completed Medical Devices Description No Information Available Encounters Type Date Location Provider Dx Diagnosis Office Visit 04/20/2021 11:15a [facility]/ [facility] Urology Calderon Biggs MD C61 [...] 11:00 am - Calderon Biggs MD at [facility]/ [facility] Urology 04/20/2021 - Calderon Biggs [...]
--- OUTSIDE RECORDS SUMMARY | 2021-06-22 07:00 | CCD ---
Author Author [facility] Organization [facility] Address Unknown Phone Unavailable Care Team Providers Care Transfer And Line Up Worker Name Role Phone MEAGAN BAILEY Unavailable PROBLEMS Type Condition ICD9-CM Code [id number] Code Onset Dates Condition S tatus W/U Status Risk SNOMED Code Notes Problem Localized edema R60.0 Active confirmed 7992 003 He does have some varicose veins [...] drugs. Problem Obesity, unspecified E66.9 Active confirmed [id number] Weight loss strategies including caloric accountability (watching portion size and caloric content of food) and physical activity was discussed in the office today. Problem Hypertensive chronic kidney disease with stage 1 through stage 4 chronic kidney disease, or unspecified chronic kidney disease I12.9 Active confirmed [id number] Blood pressure contr ol is satisfactory. He [...] Drug Allergy Active ENCOUNTERS from 1942 to 2021-05-15 Encounter Location Date Provider Diagnosis .[facility] [address] [facility] [address] [place], [place] [id number] May, ADEBOWALE OG[place] IMMUNIZATIONS No Information SOCIAL [...] Information RESULTS No Results REASON FOR VISIT Medication Concern RE: GI Exam MEDICAL (GENERAL) HISTORY Type Description Date Medical History Stage III chronic kidney disease Medical History Morbid obesity Medical History CAD status post PTCA with stenting. Medical History Diabetes Mellitus Type 2 diagnosed in 22 01. No retinopathy. Medical History Prostate cancer Medical History IBS Medical History Obstructive Sleep apnea Medical History [place] Medical History Hypertension Medical History Bipolar affect, depressed Medical History Hyperlipidemia Medical History Low back pain Medical History Other MD: Remi Meyer MD Medical History Had [employer] vaccines -11/14, 12/05/20 Surgical History Septoplasty 1999 Surgical History Prostate biopsy 2002 Surgical History L Hip Arthroplasty Surgical History R Hip Arthroscopy Goals Section No Information Health Concerns No Information MEDICAL EQUIPMENT No Information MENTAL STATUS No Information FUNCTIONAL STATUS No Information ASSESSMENTS No Information PLAN OF TREATMENT Next Appt Details Provider Name:HOMERO GONZALEZ, 2021-08-04 10:40:00 AM, [address] [facility], [address], [id number], Insurance Providers Payer Name Payer Address Payer Phone Insured Name Patient Relati onship to Insured Coverage Start Date Coverage End Date [employer] BL[employer] PPO [address] [address] [place] [address] RADHA BERNSTEIN self
--- OUTSIDE RECORDS SUMMARY | 2021-06-22 07:00 | CCD | Continuity of Care Document ---
Author Author Gael BIGGS MD Organization Unknown Address [address] [place] [address] Phone [phone] Care Team Providers Care Parking Patroller Name Role Phone Remi Meyer M.D. AUTM [phone] Wesley Juarez M.D. AUTM [phone] Addis Moreira M.D. AUTM [phone] Bairon Boswell M.D. AUTM [phone] Problems Active Problems Provider Date Malignant tumor [...] medication just does not w ork 06/09/2007 [place] Extract 04/12/2019 Thimerosal 04/12/2019 Medications Active Medications [...] Negative Ua Clarity Not Entered Ua Specific [place] 1.020 1.003-1.030 Ua PH 5.0 5.0-7.5 Ua Bilirubin Negative Ua Urobilinogen 0.2 E.U./dL 0.0-1.0 Laboratory test finding 04/14/2021 [facility] [address] [place] [address] [phone] Total Psa Only 4.98 ng/mL High 0.00-4.10 BUN And Creatinine 04/14/2021 [facility] [address] [place] [address] [phone] BUN 43.0 mg/dL High 7.0-24.0 #Creat 04/14/2021 [facility] [address] [place] [address] [phone] Creatinine 1.99 mg/dL High 0.72-1.25 eGFR - Descent 38.5 Low >60.0 eGFR -- Non- Descent 31.7 Low >60.0 Procedures Date Code Description Status 04/20/2021 69774 Office/Outpatient Established Mo d MDM 30-39 Min Completed 04/20/2021 33453 Bladder Scan, Post Voiding Resid ual Urine Completed Medical Devices Description No Information Available Encounters Type Date Location Provider Dx Diagnosis Office Visit 04/20/2021 11:15a [facility]/ [facility]rology Calderon Biggs MD C61 Malignant [...] 11:00 am - Calderon Biggs MD at [facility]/ [facility] Urology 04/20/2021 - Calderon Biggs MD* [...]
--- OUTSIDE RECORDS SUMMARY | 2021-06-22 07:00 | CCD | Continuity of Care Document ---
Author Author Gael [facility] Organization Unknown Address [address] [facility], [address] [place] [address] Phone [phone] Care Team Providers Care Mold Engraver Name Role Phone Addis Moreira MD AUTM [phone] Problems Description No Active Problems Social History Type Date Description Comments Sex Unknown ETOH Use 2/mo Tobacco Use Start: Unknown Non Smoker Allergies, Adverse Reactions, Alerts Active Allergies Criticality Reaction | Severity Comments Date Thimerosal Unable to assess criticality and other me rcuric derivatives 04/28/2021 Penicillin V Unable to assess criticality 04/28/2021 Medications Active Medications SIG Qnty Indications Ordering Provide r Date Dulcolax 5mg Tablets DR take 4 tabs by mouth prior to procedure per instructions. 4tabs Z12.11 Alan Carvalho MD 05/12/2021 Miralax 17GM/Scoop Powder take 17 grams by mouth once daily. 510units K59.00 Alan Carvalho MD 05/12/2021 Miralax 17GM/Scoop Powder use as instructed by doctor for bowel prep 510gm Z12.11 Alan Carvalho MD 05/12/2021 Afrin 2sprays/qam Unknown Magnesium Citrate 1.745GM/30ML Marge ution prn Unknown Tylenol 8 Hour 650mg Tablets ER 1tab bid Unknown Nucific Bio-X4 2caps per meal Unknown Diphenhydramine HCL 50mg Capsules 2caps qhs Unknown Melatonin 10mg Capsules 2caps qhs Unknown Trulicity 1.5mg/0.5ML Solution Pen -Inject inj/wkly Unknown Lancet For BLD Test wkly Unknown Retaine MGD Eye Lubricant 2drops/prn Unknown Allergy Eye Relief 2drops/prn Unknown Cetirizine HCL 10mg Tablets 2 tabs prn Unknown Nitroglycerin 0.4mg Tablets Sub 1tab prn Unknown Avodart 0.5mg Capsules Daily Unknown EX-Lax 15mg Tablets prn Unknown Stool Softener 100mg Capsules 3caps qam Unknown Turmeric 500mg Capsules 2caps qam Unknown Preservision Areds 2 Areds 2 Capsu les 1cap qam Unknown Vitamin E 180MG 1tab qam Unknown 0 Vitamin C 1000mg Tablets 1tab qam Unknown Vitamin Super B-Complex 2tab qam Unknown 0 Mul Vit-Centrum Silver 1tab qam Unknown Aspirin 325mg Tablets 1tab qa m Unknown Iron 325(65Fe) mg Tablets 1ta b qam Unknown Tamsulosin HCL 0.4mg Capsules 1cap qam Unknown Furosemide 20mg Tablets 1tab qam Unknown Bupropion Hydrochloride ER (XL) 300mg Tablets ER 24HR 1tab qam Unknown Bupropion Hydrochloride ER (XL) 150mg Tablets ER 24HR 1tab qam Unknown Rosuvastatin Calcium 40mg Tablets 1tab qam Unknown Lisinopril-Hydrochlorothiazide 20-25mg Tablets 1tab qam Unknown Immunizations Description No Information Available Vital Signs Date Vital Result Comment 05/12/2021 9:51am BP Systolic 128 mmHg BP Diastolic 72 mmHg Height 68.5 inches 5'8.50" Weight 250.00 lb BMI (Body Mass Index) 37.5 kg/m2 [place] Body Weight 154 lb Weight 113.400 kg BSA (Body Surface Area) 2.26 m2 Results Description No Information Available Procedures Date Code Description Status 05/12/2021 09467 Office/Outpatient New Low MDM 30 -44 Minutes Completed Medical Devices Description No Information Available Encounters Type Date Location Provider Dx Diagnosis Office Visit 05/12/2021 9:45a [facility] Kylee Orozco SHWETA Mccloud Z12.11 Encounter for screening for malignant neoplasm of colon Z86.010 Personal history of colonic polyps Z80.0 Family history of malignant neoplasm of digestive organs K59.00 Constipation, unspecified Assessments Date Code Description Provider 05/12/2021 Z12.11 Encounter for screening for otis gnant neoplasm of colon Kylee Orozco SHWETA Mccloud 05/12/2021 Z86.010 Personal history of colonic poly ps Kylee Pam SHWETA Mccloud 05/12/2021 Z80.0 Family history of malignant neop lasm of digestive organs Kylee A SHWETA Mccloud 05/12/2021 K59.00 Constipation, unspecified Brandieiss SHWETA Modi Plan of Treatment 05/12/2021 - Kylee Orozco SHWETA Mccloud* Z12.11 Encounter for screening for malignant neoplasm of colon * Z86.010 Personal history of colonic polyps * Z80.0 Family history of malignant neoplasm of digestive organs * K59.00 Constipation, unspecified * * New Medication:* Miralax 17 GM/Scoop * Dulcolax 5 mg * New Orders:* Colonoscopy, Ordered: 05/12/21 * Comments:* Will arrange for colonoscopy. Reviewed risks and benefits of the procedure, as well as other options, with the patient. Bowel prep procedure was discussed with patient, as well as risks and side effects associated with the bowel prep. Patient verbalized understanding of all of the above and is in agreement to proceed. Patient will seek medical attention for any acute changes. Will monitor. * Follow up:* As scheduled, sooner if needed. Functional Status Description No Information Available Mental Status Description No Information Available Referrals Refer to Reason for Referral Status Appt Date Kevan Eubanks M.D. COLO SCREENING Scheduled 03/2021 [facility] [address] [facility], [address] [place] [address] [phone]
--- OUTSIDE RECORDS SUMMARY | 2021-06-22 07:00 | CCD | Continuity of Care Document ---
Author Author Gael BIGGS MD Organization Unknown Address [address] [place] [address] Phone [phone] Care Team Providers Care Mold Cleaner Name Role Phone Remi Meyer M.D. AUTM [phone] Wesley Juarez M.D. AUTM [phone] Addis Moreira M.D. AUTM [phone] Bairon Boswell M.D. AUTM Problems Active Problems [...] medication just does not w ork 06/09/2007 [place] Extract 04/12/2019 Thimerosal 04/12/2019 Medications Active Medications [...] Negative Ua Clarity Not Entered Ua Specific [place] 1.020 1.003-1.030 Ua PH 5.0 5.0-7.5 Ua Bilirubin Negative Ua Urobilinogen 0.2 E.U./dL 0.0-1.0 Laboratory test finding 04/14/2021 [facility] [address] [place] [address] [phone] Total Psa Only 4.98 ng/mL High 0.00-4.10 BUN And Creatinine 04/14/2021 [facility] [address] [place] [address] [phone] BUN 43.0 mg/dL High 7.0-24.0 #Creat 04/14/2021 [facility] [address] [place] [address] [phone] Creatinine 1.99 mg/dL High 0.72-1.25 eGFR - Descent 38.5 Low >60.0 eGFR -- Non- Descent 31.7 Low >60.0 Procedures Date Code Description Status 04/20/2021 89927 Office/Outpatient Established Mo d MDM 30-39 Min Completed 04/20/2021 62407 Bladder Scan, Post Voiding Resid ual Urine Completed Medical Devices Description No Information Available Encounters Type Date Location Provider Dx Diagnosis Office Visit 04/20/2021 11:15a [facility]/ [facility]rology Calderon Biggs MD [...] 11:00 am - Calderon Biggs MD at [facility]/ [facility]rology 04/20/2021 - Calderon [...]
--- OUTSIDE RECORDS SUMMARY | 2021-06-22 07:01 | CCD | Continuity of Care Document ---
Author Author Gael Meehan Organization Unknown Address [address] [place] [address] Phone [phone] Care Team Providers Care Sheep Or Calf Grader Name Role Phone Remi Meyer M.D. AUTM [phone] Wesley Juarez M.D. AUTM [phone] Addis Moreira M.D. AUTM [phone] Problems Active Problems Provider Date Malignant tumor of prostate Calderon Biggs MD Onset: 01/03 Increased frequency of urination Calderon Biggs MD Onset: 03/12/2013 Balanitis xerotica obliterans Calderon Biggs MD Onset: Social History Type Date Description Comments Sex Unknown Tobacco Use Start: Unknown End: Unknown Former Cigarette Smo ker 30 PACK YR SMOKER Smoking Status Reviewed: 04/17/20 Former Cigarette Smoker 30 PA CK YR SMOKER ETOH Use Patient denies alcohol use Allergies, Adverse Reactions, Alerts Active Allergies Reaction Severity Comments Date Penicillin not an allergy per patient- medication just does not w ork 06/09/2007 [place] Extract 04/12/2019 Thimerosal 04/12/2019 Medications Active Medications SIG Qnty Indications Ordering Provide r Date Flomax 0.4mg Capsules 1 by mouth every day 30caps Calderon Biggs MD 04/12/2019 Nitrostat 0.4mg Tablets Sub 1 sl as needed chest pain q5 min (max 3tabs in 15 min) Unknown Cetirizine HCL 10mg Tablets 1 by mouth [...] Tablets 1 by mouth every day Unknown Ketoconazole 2% Remi Cabrera M.D. Bupropion [...] Available Vital Signs Date Vital Result Comment 04/18/2020 10:03am Height 68 inches 5'8" Weight 261.00 lb Weight 118.390 kg BMI (Body Mass Index) 39.7 kg/m2 BP Systolic 122 mmHg BP Diastolic 69 mmHg Heart Rate 86 /min 04/12/2019 10:09am Height 68 inches 5'8" Weight 260.00 lb Weight 117.936 kg BMI (Body Mass Index) 39.5 kg/m2 BP Systolic 134 mmHg BP Diastolic 65 mmHg Heart Rate 70 /min Results Test Acquired Date Facility Test Result H/L Range Note Laboratory test finding 04/14/2021 [facility] [address] [place] [address] [phone] Total Psa Only 4.98 ng/mL High 0.00-4.10 BUN And Creatinine 04/14/2021 [facility] [address] [place], [place] [phone] BUN 43.0 mg/dL High 7.0-24.0 #Creat 04/14/2021 [facility] [address] [place] [address] [phone] Creatinine 1.99 mg/dL High 0.72-1.25 eGFR - Descent 38.5 Low >60.0 eGFR -- Non- Descent 31.7 Low >60.0 Procedures Description No Information Available Medical Devices Description No Information Available Encounters Description No Information Available Assessments Date Code Description Provider 04/14/2021 C61 Malignant neoplasm of prostate N M Lab 04/14/2021 Z01.812 Encounter for preprocedural labo ratory examination NM Lab 04/14/2021 C61 Malignant neoplasm of prostate B vernell Champagne MD 04/14/2021 Z01.812 Encounter for preprocedural labo ratory examination Jimmy Champagne MD Plan of Treatment Future Appointment(s):* 04/20/2021 11:15 am - Calderon Biggs MD at [facility]/ [facility] Urology 04/18/2020 - Calderon Biggs MD* C61 Malignant neoplasm of prostate* Comments: * The patient will continue with surveillance for prostate cancer. I see no strong reason or indication to move forward with a biopsy at this point. He will come back in 1 year with a PSA and an MRI. This will be 5 years from his previous MRI. 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 He is status post circumcision with balanitis xerotica obliterans * N40.1 Benign prostatic hyperplasia with lower urinary tract symptoms* Comments:* Jesus is quite pleased with Flomax. He will continue this medication. * R39.12 Poor urinary stream Functional Status Description No Information Available Mental Status Description No Information Available Referrals Description No Information Available
--- OUTSIDE RECORDS SUMMARY | 2021-06-22 07:01 | CCD ---
Author Author [facility] acuse Organization [facility] acuse Address Unknown Phone Unavailable Care Team Providers Care Tea Blender Name Role Phone MEAGAN BAILEY Unavailable PROBLEMS Type Condition ICD9-CM Code [id number] Code Onset Dates Condition S tatus W/U Status Risk SNOMED Code Notes Problem Localized edema R60.0 Active confirmed 7909 003 He does have some varicose veins [...] drugs. Problem Obesity, unspecified E66.9 Active confirmed [id number] Weight loss strategies including caloric accountability (watching portion size and caloric content of food) and physical activity was discussed in the office today. Problem Hypertensive chronic kidney disease with stage 1 through stage 4 chronic kidney disease, or unspecified chronic kidney disease I12.9 Active confirmed [id number] Blood pressure contr ol is satisfactory. He [...] Drug Allergy Active ENCOUNTERS from 1940 to 2021-04-07 Encounter Location Date Provider Diagnosis .[facility] [address] [facility] [address] [place], [place] [id number] Apr, MEAGAN BAILEY Chronic Kidney Disea se Stage 3, GFR 59-45 N18.31 ; Localized edema R60.0 ; Hypertensive chronic kidney disease with stage 1 through stage 4 chronic kidney disease, or unspecified chronic kidney disease I12.9 and Obesity, unspecified E66.9 IMMUNIZATIONS No Information SOCIAL HISTORY Tobacco Use: Social History Observation Description Date Details (start date - stop date) Former Smoker Sex Assigned At : Social History Observation Description Sex Assigned At Unknown Smoking Question Answer Notes Status: former smoker Quit smoking in 2005 . Smoked for 30 years REASON FOR REFERRAL No Information VITAL SIGNS Heart Rate 76 /min Apr, Weight 251.8 lbs Apr, Height 68 in Apr, BMI 38.28 kg/m2 Apr, Blood pressure systolic 112 Apr, Blood pressure diastolic 62 Apr, MEDICATIONS Medication SIG (Take, Route, Frequency, Duration) [...] directed Orally Active PROCEDURES No Information RESULTS Component Value Reference Range RENAL FUNCTION Reviewed date:04/07/2021 11:04:38 Interpretation: Performing Lab:[facility], ,[id number] ALBUMIN 3.9 3.4-5.0 BUN 29 7-18 CALCIUM 9.1 8.5-10.1 CREATININE 1.7 0.6-1.3 GFR NON-AFR.AM 41.64 >=60.00 GFR AFR.AM 50.38 >=60.00 SODIUM 141 135-145 POTASSIUM 4.2 3.6-5.2 CHLORIDE 106 100-108 CO2 28.6 21.0-32.0 GLUCOSE 97.0 70.0-110.0 PHOSPHORUS 3.2 2.5-4.9 ANION GAP 6 5-15 Urine Protein.Creat ratio Reviewed date:04/07/2021 11:04:44 Interpretation: Performing Lab:[facility], [id number] U-CREA 154.8 30.0-125.0 U-PROTEIN 14.5 6.0-11.9 U-PROT/CREAT 0.1 0.0-0.2 CBC w/DIFF Reviewed date:04/07/2021 11:05:18 Interpretation: Performing Lab:[facility], [id number] WBC 11.2 4.1-10.9 RBC 4.20 4.20-6.30 HGB 13.6 12.0-18.0 HCT 41.6 36.0-51.0 MCV 99.0 80.0-97.0 MCH 32.4 26.0-32.0 MCHC 32.7 31.0-36.0 PLT 267 140-440 RDW-SD 45.8 35.1-43.9 RDW-CV 12.2 11.5-15.5 MPV 8.5 7.4-10.4 NEUT # 7.41 1.60-6.10 LYMPH # 2.29 0.60-4.10 MONO # 1.09 0.20-0.90 EO # 0.37 0.00-0.50 BASO # 0.03 0.00-0.10 NEUT % 66.0 34.0-71.1 LYMPH % 20.4 10.0-58.5 MONO % 9.7 10.0-58.5 EO % 3.3 0.7-7.0 BASO % 0.3 0.1-1.2 IG# 0.03 LOW IG% 0.30 0.00-0.43 UA-DIP Reviewed date:04/07/2021 11:05:30 Interpretation: Performing Lab:[facility], [facility] COLOR Yellow YELLOW CLARITY Clear CLEAR SPEC.GRAV. 1.025 PH 5.5 5.0 - 8.0 PROTEIN Negative NEGATIVE GLUCOSE Negative NEGATIVE KETONES Negative NEGATIVE BILIRUBIN Negative NEGATIVE BLOOD Negative NEGATIVE NITRITE Negative NEGATIVE UROBILINOGEN 0.2 0.2-1.0 LEUKOCYTES 1+ NEGATIVE UA MICRO Reviewed date:04/07/2021 11:05:36 Interpretation: Performing Lab:[facility], [id number] WBC /HPF 11-25 0-5 RBC /HPF RARE 0-2 SQUAM EPI/hpv NONE SEEN RENAL EPI/hpf NONE SEEN NONE SEEN TRANS EPI/hpf NONE SEEN NONE SEEN BACTERIA/LPF 1+ NONE SEEN MUCOUS/hpf NONE SEEN NONE SEEN OTHER /hpf NONE SEEN NONE SEEN HYALINE FRETTED INSTRUMENT MAKER HAND/LPF NONE SEEN NONE SEEN F GRAN FRETTED INSTRUMENT MAKER HAND/LPF NONE SEEN NONE SEEN CRS GRAN FRETTED INSTRUMENT MAKER HAND NONE SEEN NONE SEEN WBC CAST NONE SEEN NONE SEEN RBC CAST NONE SEEN NONE SEEN CELLULAR CAST NONE SEEN NONE SEEN OTHER CAST NONE SEEN NONE SEEN CA OX MAINE NONE SEEN NONE SEEN TRIPHOSPH CRY NONE SEEN NONE SEEN URIC ACID MAINE NEGATIVE NEGATIVE YEAST NONE SEEN NONE SEEN TRICHOMONAS NONE SEEN NONE SEEN SPERMATAZOA NONE PRESENT VENIPUNCTURE OP Reviewed date:04/07/2021 11:05:41 Interpretation: Performing Lab:[facility], [id number] VENIPUNCTURE VENIPUNCTURE REASON FOR VISIT Patient is seen today in follow-up. MEDICAL (GENERAL) HISTORY Type Description Date Medical [...] MD: Remi Meyer MD Medical History Had Pfizer Mindbloom vaccines -11/14, 12/05/20 Surgical History Septoplasty 1999 Surgical History Prostate biopsy 2002 Surgical History L Hip Arthroplasty Surgical History R Hip Arthroscopy Goals Section No Information Health Concerns No Information MEDICAL EQUIPMENT No Information MENTAL STATUS No Information FUNCTIONAL STATUS No Information ASSESSMENTS Encounter Date Diagnosis Assessment Notes Treatment Notes Treatm ent Clinical Notes Apr, Chronic Kidney Disease Stage 3, GFR 59-4 5 (ICD-10 - N18.31) Stage III chronic kidney disease most likely secondary to NSAID use with a component of prerenal azotemia. He has prostate cancer with a post void residual volume of 150 mL from my initial assessment. He will continue with the use of his GERARD inhibitor as well as hydrochlorothiazide as a diuretic. This will be helpful in treating hypertension. Continue with efforts of good glycemic and blood pressure control as well as the consistent the use of his GERARD inhibitor. Avoid nephrotoxic agents like nonsteroidal anti-inflammatory drugs. Apr, Localized edema (ICD-10 - R60.0) He does have some varicose veins in the lower extremities that increases predilection for lower extremity edema. Urinalysis did not show proteinuria. The importance of dietary sodium restriction was discussed. He will continue with thiazide diuretic therapy. He continue to use furosemide only as needed for severe lower extremity edema. He is to continue to avoid nonsteroidal drugs as this can cause lower extremity edema. Apr, Hypertensive chronic kidney disease with stage 1 through stage 4 chronic kidney disease, or unspecified chronic kidney disease (ICD-10 - I12.9) Blood pressure control is satisfactory. He will continue his current antihypertensive treatment regimen other than the discontinuation of furosemide. We discussed nonpharmacological measures like dietary sodium restriction and weight loss. Apr, Obesity, unspecified (ICD-10 - E66.9) We ight loss strategies including caloric accountability (watching portion size and caloric content of food) and physical activity was discussed in the office today. PLAN OF TREATMENT Next Appt Details 4 months with [facility] with NILO panel, intact PTH and 25 [place] vitamin D level. Reason: Provider Name:HOMERO GONZALEZ, 2021-08-04 10:40:00 AM, [address] [facility], [address], [place], [place], [id number], Insurance Providers Payer Name Payer Address Payer Phone Insured Name Patient Relati onship to Insured Coverage Start Date Coverage End Date [employer] [place] [address] [address] [place] [address] RADHA BERNSTEIN self
--- OUTSIDE RECORDS SUMMARY | 2021-06-22 07:01 | CCD | Continuity of Care Document ---
Author Author Gael CHAMPAGNE MD Organization Unknown Address [address] [place] [id number] Phone [phone] Care Team Providers Care Drop Board Worker Name Role Phone Remi Meyer M.D. AUTM [phone] Wesley Juarez M.D. AUTM [phone] Addis Moreira M.D. AUTM [phone] Problems Active Problems Provider Date Malignant tumor [...] medication just does not w ork 06/09/2007 Seaside Extract 04/12/2019 Thimerosal 04/12/2019 Medications Active Medications [...] test finding 04/14/2021 [facility] [address] [place] [address] [phone] Total Psa Only 4.98 ng/mL High 0.00-4.10 BUN And Creatinine 04/14/2021 [facility] [address] [place], [place] [id number] [phone] BUN 43.0 mg/dL High 7.0-24.0 #Creat 04/14/2021 [facility] [address] [place] [address] [phone] Creatinine 1.99 mg/dL High 0.72-1.25 eGFR - [...] examination Jimmy Champagne MD Plan of Treatment 04/18/2020 - Calderon Biggs MD* [id number] Malignant [...]
--- OUTSIDE RECORDS SUMMARY | 2021-06-22 07:01 | CCD ---
Author Author [facility] Organization [facility] Address Unknown Phone Unavailable Care Team Providers Care Outbound Sales Agent Name Role Phone Charlebois, A Kylee RPA C Unavailable Unavailable Charlebois, A Kylee RPA C Unavailable Unavailable Charlebois, A Kylee RPA C Unavailable Unavailable Charlebois, A Kylee RPA C Unavailable Unavailable Charlebois, A Kylee RPA C Unavailable Unavailable Charlebois, A Kylee RPA C Unavailable Unavailable Charlebois, A Kylee RPA C Unavailable Unavailable Charlebois, A Kylee RPA C Unavailable Unavailable Charlebois, A Kylee RPA C Unavailable Unavailable Charlebois, A Kylee RPA C Unavailable Unavailable Charlebois, A Kylee RPA C Unavailable Unavailable Charlebois, A Kylee RPA C Unavailable Unavailable Charlebois, A Kylee RPA C Unavailable Unavailable Charlebois, A Kylee RPA C Unavailable Unavailable Charlebois, A Kylee RPA C Unavailable Unavailable Charlebois, A Kylee RPA C Unavailable Unavailable Charlebois, A Kylee RPA C Unavailable Unavailable Charlebois, A Kylee RPA C Unavailable Unavailable Charlebois, A Kylee RPA C Unavailable Unavailable Charlebois, A Kylee RPA C Unavailable Unavailable Charlebois, A Kylee RPA C Unavailable Unavailable Charlebois, A Kylee RPA C Unavailable Unavailable Charlebois, A Kylee RPA C Unavailable Unavailable Charlebois, A Kylee RPA C Unavailable Unavailable Charlebois, A Kylee RPA C Unavailable Unavailable Charlebois, A Kylee RPA C Unavailable Unavailable Charlebois, A Kylee RPA C Unavailable Unavailable Charlebois, A Kylee RPA C Unavailable Unavailable Charlebois, A Kylee RPA C Unavailable Unavailable Charlebois, A Kylee RPA C Unavailable Unavailable Charlebois, A Kylee RPA C Unavailable Unavailable Charlebois, A Kylee RPA C Unavailable Unavailable Charlebois, A Kylee RPA C Unavailable Unavailable MARIAH, Sukumar PAGE MD Unavailable Unavailable MARIAH, Sukumar PAGE MD Unavailable Unavailable MARIAH, Sukumar PAGE MD Unavailable Unavailable MARIAH, Sukumar PAGE MD Unavailable Unavailable MARIAH, Sukumar PAGE MD Unavailable Unavailable MARIAH, Sukumar PAGE MD Unavailable Unavailable MARIAH, Sukumar PAGE MD Unavailable Unavailable MARIAH, Sukumar PAGE MD Unavailable Unavailable MARIAH, Sukumar PAGE MD Unavailable Unavailable MARIAH, Sukumar PAGE MD Unavailable Unavailable MARIAH, Sukumar PAGE MD Unavailable Unavailable MARIAH, Sukumar PAGE MD Unavailable Unavailable MARIAH, Sukumar PAGE MD Unavailable Unavailable MARIAH, Sukumar PAGE MD Unavailable Unavailable MARIAH, Sukumar PAGE MD Unavailable Unavailable MARIAH, Sukumar PAGE MD Unavailable Unavailable MARIAH, Sukumar PAGE MD Unavailable Unavailable MARIAH, Sukumar PAGE MD Unavailable Unavailable MARIAH, Sukumar PAGE MD Unavailable Unavailable MARIAH, Sukumar PAGE MD Unavailable Unavailable MAIRAH, Sukumar PAGE MD Unavailable Unavailable MARIAH, Sukumar PAGE MD Unavailable Unavailable MARIAH, Sukumar PAGE MD Unavailable Unavailable MARIAH, Sukumar PAGE MD Unavailable Unavailable MARIAH, Sukumar PAGE MD Unavailable Unavailable MARIAH, Sukumar PAGE MD Unavailable Unavailable MARIAH, Sukumar PAGE MD Unavailable Unavailable MARIAH, Sukumar PAGE MD Unavailable Unavailable MARIAH, Sukumar PAGE MD Unavailable Unavailable MARIAH, R KAYLEE KIMBALL Unavailable Unavailable MARIAH, R KAYLEE KIMBALL Unavailable Unavailable MARIAH, R KAYLEE KIMBALL Unavailable Unavailable MARIAH, R KAYLEE KIMBALL Unavailable Unavailable MARIAH, Sukumar PAGE MD Unavailable Unavailable MARIAH, Sukumar PAGE MD Unavailable Unavailable MARIAH, Sukumar PAGE MD Unavailable Unavailable MARIAH, Sukumar PAGE MD Unavailable Unavailable MARIAH, Sukumar PAGE MD Unavailable Unavailable MARIAH, Sukumar PAGE MD Unavailable Unavailable MARIAH, R KAYLEE KIMBALL Unavailable Unavailable MARIAH, R KAYLEE KIMBALL Unavailable Unavailable MARIAH, R KAYLEE KIMBALL Unavailable Unavailable MARIAH, R KAYLEE KIMBALL Unavailable Unavailable MARIAH, R KAYLEE KIMBALL Unavailable Unavailable MARIAH, R KAYLEE KIMBALL Unavailable Unavailable MARIAH, R KAYLEE KIMBALL Unavailable Unavailable MARIAH, Sukumar PAGE MD Unavailable Unavailable MARIAH, Sukumar PAGE MD Unavailable Unavailable MARIAH, Sukumar PAGE MD Unavailable Unavailable MARIAH, Sukumar PAGE MD Unavailable Unavailable MARIAH, Sukumar PAGE MD Unavailable Unavailable MARIAH, Sukumar PAGE MD Unavailable Unavailable MARIAH, Sukumar PAGE MD Unavailable Unavailable MARIAH, Sukumar PAGE MD Unavailable Unavailable MARIAH, Sukumar PAGE MD Unavailable Unavailable MARIAH, Sukumar PAGE MD Unavailable Unavailable MARIAH, Sukumar PAGE MD Unavailable Unavailable MARIAH, Sukumar PAGE MD Unavailable Unavailable MARIAH, Sukumar PAGE MD Unavailable Unavailable MARIAH, Sukumar PAGE MD Unavailable Unavailable MARIAH, Sukumar PAGE MD Unavailable Unavailable MARIAH, Sukumar PAGE MD Unavailable Unavailable MARIAH, Sukumar PAGE MD Unavailable Unavailable MARIAH, Sukumar PAGE MD Unavailable Unavailable MARIAH, Sukumar PAGE MD Unavailable Unavailable MARIAH, Sukumar PAGE MD Unavailable Unavailable MARIAH, Sukumar PAGE MD Unavailable Unavailable MARIAH, Sukumar PAGE MD Unavailable Unavailable MARIAH, Sukumar PAGE MD Unavailable Unavailable MARIAH, Sukumar PAGE MD Unavailable Unavailable MARIAH, Sukumar PAGE MD Unavailable Unavailable MARIAH, Sukumar PAGE MD Unavailable Unavailable MARIAH, Sukumar PAGE MD Unavailable Unavailable MARIAH, Sukumar PAGE MD Unavailable Unavailable MARIAH, Sukumar PAGE MD Unavailable Unavailable MARIAH, Sukumar PAGE MD Unavailable Unavailable MARIAH, Sukumar PAGE MD Unavailable Unavailable MARIAH, Sukumar PAGE MD Unavailable Unavailable MARIAH, Sukumar PAGE MD Unavailable Unavailable Kopko, Pam Arechiga MD Unavailable Unavailable Kopko, Pam Arechiga MD Unavailable Unavailable Kopko, Pam Arechiga MD Unavailable Unavailable Kopko, Pam Arechiga MD Unavailable Unavailable Kopko, Pam Arechiga MD Unavailable Unavailable Kopko, Pam Arechiga MD Unavailable Unavailable Kopko, Pam Arechiga MD Unavailable Unavailable Kopko, Pam Arechiga MD Unavailable Unavailable Kopko, A Hawk MD Unavailable Unavailable Kopko, A Hawk MD Unavailable Unavailable Kopko, A Hawk MD Unavailable Unavailable Kopko, A Hawk MD Unavailable Unavailable Kopko, A Hawk MD Unavailable Unavailable Kopko, A Hawk MD Unavailable Unavailable Kopko, A Hawk MD Unavailable Unavailable Kopko, A Hawk MD Unavailable Unavailable Kopko, A Hawk MD Unavailable Unavailable Kopko, A Hawk MD Unavailable Unavailable Kopko, A Hawk MD Unavailable Unavailable Kopko, A Hawk MD Unavailable Unavailable Kopko, A Hawk MD Unavailable Unavailable Kopko, A Hawk MD Unavailable Unavailable Kopko, A Hawk MD Unavailable Unavailable Kopko, A Hawk MD Unavailable Unavailable Kopko, A Hawk MD Unavailable Unavailable Kopko, A Hawk MD Unavailable Unavailable Kopko, A Hawk MD Unavailable Unavailable Kopko, A Hawk MD Unavailable Unavailable Kopko, A Hawk MD Unavailable Unavailable Kopko, A Hawk MD Unavailable Unavailable Kopko, A Hawk MD Unavailable Unavailable Kopko, A Hawk MD Unavailable Unavailable Kopko, A Hawk MD Unavailable Unavailable Kopko, A Hawk MD Unavailable Unavailable Kopko, A Hwak MD Unavailable Unavailable Kopko, A Hawk MD Unavailable Unavailable Kopko, A Hawk MD Unavailable Unavailable Kopko, A Hawk MD Unavailable Unavailable Kopko, A Hawk MD Unavailable Unavailable Kopko, A Hawk MD Unavailable Unavailable Kopko, A Hawk MD Unavailable Unavailable Kopko, A Hawk MD Unavailable Unavailable Kopko, A Hawk MD Unavailable Unavailable Kopko, A Hawk MD Unavailable Unavailable Kopko, A Hawk MD Unavailable Unavailable Kopko, A Hawk MD Unavailable Unavailable Kopko, A Hawk MD Unavailable Unavailable Kopko, A Hawk MD Unavailable Unavailable Kopko, A Hawk MD Unavailable Unavailable Kopko, A Hawk MD Unavailable Unavailable Kopko, A Hawk MD Unavailable Unavailable Kopko, A Hawk MD Unavailable Unavailable Kopko, A Hawk MD Unavailable Unavailable Kopko, A Hawk MD Unavailable Unavailable Kopko, A Hawk MD Unavailable Unavailable Kopko, A Hawk MD Unavailable Unavailable Kopko, A Hawk MD Unavailable Unavailable Kopko, A Hawk MD Unavailable Unavailable Kopko, A Hawk MD Unavailable Unavailable Kopko, Pam Arechiga MD Unavailable Unavailable Kopko, Pam Arechiga MD Unavailable Unavailable Kopko, Pam Arechiga MD Unavailable Unavailable Kopko, Pam Arechiga MD Unavailable Unavailable Kopko, Pam Arechiga MD Unavailable Unavailable Kopko, Pam Arechiga MD Unavailable Unavailable Kopko, Pam Arechiga MD Unavailable Unavailable Kopko, Pam Arechiga MD Unavailable Unavailable Kopko, Pam Arechiga MD Unavailable Unavailable Kopko, Pam Arechiga MD Unavailable Unavailable Kopko, Pam Arechiga MD Unavailable Unavailable Kopko, Pam Arechiga MD Unavailable Unavailable Kopko, Pam Arechiga MD Unavailable Unavailable Kopko, Pam Arechiga MD Unavailable Unavailable Kopko, Pam Arechiga MD Unavailable Unavailable Kopko, Pam Arechiga MD Unavailable Unavailable Kopko, Pam Arechiga MD Unavailable Unavailable Kopko, Pam Arechiga MD Unavailable Unavailable Elizabeth CHRISTENSEN MD Unavailable Unavailable Elizabeth CHRISTENSEN MD Unavailable Unavailable Elizabeth CHRISTENSEN MD Unavailable Unavailable Elizabeth CHRISTENSEN MD Unavailable Unavailable Elizabeth CHRISTENSEN MD Unavailable Unavailable Elizabeth CHRISTENSEN MD Unavailable Unavailable Elizabeth CHRISTENSEN MD Unavailable Unavailable Elizabeth CHRISTENSEN MD Unavailable Unavailable Elizabeth CHRISTENSEN MD Unavailable Unavailable Elizabeth CHRISTENSEN MD Unavailable Unavailable Elizabeth CHRISTENSEN MD Unavailable Unavailable Elizabeth CHRISTENSEN MD Unavailable Unavailable Elizabeth CHRISTENSEN MD Unavailable Unavailable Elizabeth CHRISTENSEN MD Unavailable Unavailable Elizabeth CHRISTENSEN MD Unavailable Unavailable Elizabeth CHRISTENSEN MD Unavailable Unavailable Elizabeth CHRISTENSEN MD Unavailable Unavailable Elizabeth CHRISTENSEN MD Unavailable Unavailable Elizabeth CHRISTENSEN MD Unavailable Unavailable Elizabeth CHRISTENSEN MD Unavailable Unavailable Elizabeth CHRISTENSEN MD Unavailable Unavailable Elizabeth CHRISTENSEN MD Unavailable Unavailable Elizabeth CHRISTENSEN MD Unavailable Unavailable Elizabeth CHRISTENSEN MD Unavailable Unavailable Elizabeth CHRISTENSEN MD Unavailable Unavailable Elizabeth CHRISTENSEN MD Unavailable Unavailable Elizabeth CHRISTENSEN MD Unavailable Unavailable Elizabeth CHRISTENSEN MD Unavailable Unavailable Elizabeth CHRISTENSEN MD Unavailable Unavailable Elizabeth CHRISTENSEN MD Unavailable Unavailable Elizabeth CHRISTENSEN MD Unavailable Unavailable Elizabeth CHRISTENSEN MD Unavailable Unavailable Elizabeth CHRISTENSEN MD Unavailable Unavailable Elizabeth CHRISTENSEN MD Unavailable Unavailable Elizabeth CHRISTENSEN MD Unavailable Unavailable AMPAROElizabeth MD Unavailable Unavailable AMPAROElizabeth MD Unavailable Unavailable AMPARO, Elizabeth MANRIQUE MD Unavailable Unavailable AMPARO, Elizabeth MANRIQUE MD Unavailable Unavailable AMPARO, Elizabeth MANRIQUE MD Unavailable Unavailable AMPARO, Elizabeth MANRIQUE MD Unavailable Unavailable AMPARO, Elizabeth MANRIQUE MD Unavailable Unavailable AMPARO, Elizabeth MANRIQUE MD Unavailable Unavailable AMPARO, Elizabeth MANRIQUE MD Unavailable Unavailable AMPARO, Elizabeth MANRIQUE MD Unavailable Unavailable AMPARO, Elizabeth MANRIQUE MD Unavailable Unavailable AMPARO, Elizabeth MANRIQUE MD Unavailable Unavailable AMPARO, Elizabeth MANRIQUE MD Unavailable Unavailable AMPARO, Elizabeth MANRIQUE MD Unavailable Unavailable AMPARO, Elizabeth MANRIQUE MD Unavailable Unavailable AMPARO, Elizabeth MANRIQUE MD Unavailable Unavailable AMPARO, Elizabeth MANRIQUE MD Unavailable Unavailable AMPARO, Elizabeth MANRIQUE MD Unavailable Unavailable AMPARO, Elizabeth MANRIQUE MD Unavailable Unavailable AMPARO, Elizabeth MANRIQUE MD Unavailable Unavailable AMPARO, Elizabeth MANRIQUE MD Unavailable Unavailable AMPARO, Elizabeth MANRIQUE MD Unavailable Unavailable AMPAOR, Elizabeth MANRIQUE MD Unavailable Unavailable AMPAROElizabeth MD Unavailable Unavailable AMPARO, Elizabeth MANRIQUE MD Unavailable Unavailable AMPARO, Elizabeth MANRIQUE MD Unavailable Unavailable AMPARO, Elizabeth MANRIQUE MD Unavailable Unavailable AMPAROElizabeth MD Unavailable Unavailable AMPAROElizabeth MD Unavailable Unavailable AMPAROElizabeth MD Unavailable Unavailable AMPAROElizabeth MD Unavailable Unavailable AMPARO, Elizabeth MANRIQUE MD Unavailable Unavailable AMPAROElizabeth MD Unavailable Unavailable AMPARO, Elizabeth MANRIQUE MD Unavailable Unavailable AMPAROElizabeth MD Unavailable Unavailable AMPAROElizabeth MD Unavailable Unavailable AMPAROElizabeth MD Unavailable Unavailable AMPAROElizabeth MD Unavailable Unavailable AMPAROElizabeth MD Unavailable Unavailable AMPAROElizabeth MD Unavailable Unavailable AMPAROElizabeth MD Unavailable Unavailable AMPAROElizabeth MD Unavailable Unavailable AMPAROElizabeth MD Unavailable Unavailable AMPAROElizabeth MD Unavailable Unavailable AMPAROElizabeth MD Unavailable Unavailable AMPAROElizabeth MD Unavailable Unavailable AMPAROElizabeth MD Unavailable Unavailable AMPAROElizabeth MD Unavailable Unavailable Kristian Biggs MD Unavailable Unavailable Kristian Biggs MD Unavailable Unavailable Kristian Biggs MD Unavailable Unavailable Kristian Biggs MD Unavailable Unavailable Kristian Biggs MD Unavailable Unavailable Kristian Biggs MD Unavailable Unavailable Salzhauer, Kristian Mancera MD Unavailable Unavailable Salzhauer, Kristian Mancera MD Unavailable Unavailable Salzhauer, Kristian Mancera MD Unavailable Unavailable Salzhauer, Kristian Mancera MD Unavailable Unavailable Salzhauer, Kristian Mancera MD Unavailable Unavailable Salzhauer, Kristian Mancera MD Unavailable Unavailable Salzhauer, Kristian Mancera MD Unavailable Unavailable Salzhauer, Kristian Mancera MD Unavailable Unavailable Salzhauer, Kristian Mancera MD Unavailable Unavailable Salzhauer, Kristian Mancera MD Unavailable Unavailable Salzhauer, Kristian Mancera MD Unavailable Unavailable Salzhauer, Kristian Mancera MD Unavailable Unavailable Salzhauer, Kristian Mancera MD Unavailable Unavailable Salzhauer, Kristian Mancera MD Unavailable Unavailable Salzhauer, Kristian Mancera MD Unavailable Unavailable Salzhauer, Kristian Mancera MD Unavailable Unavailable Salzhauer, Kristian Mancera MD Unavailable Unavailable Salzhauer, Kristian Mancera MD Unavailable Unavailable Salzhauer, Kristian Mancera MD Unavailable Unavailable Salzhauer, Kristian Mancera MD Unavailable Unavailable Salzhauer, Kristian Mancera MD Unavailable Unavailable Salzhauer, Kristian Mancera MD Unavailable Unavailable Salzhauer, Kristian Mancera MD Unavailable Unavailable Salzhauer, Kristian Mancrea MD Unavailable Unavailable Salzhauer, Kristian Mancera MD Unavailable Unavailable Salzhauer, Kristian aMncera MD Unavailable Unavailable Salzhauer, Krisitan Mancera MD Unavailable Unavailable Salzhaamena, Kristian Mancera MD Unavailable Unavailable Salzhaamena, Kristian Mancera MD Unavailable Unavailable Salzhaamena, Kristian Mancera MD Unavailable Unavailable Salzhaamena, Kristian Mancera MD Unavailable Unavailable Salzhauer, Kristian Mancera MD Unavailable Unavailable Salzhauer, Kristian Mancera MD Unavailable Unavailable Salzhauer, Kristian Mancera MD Unavailable Unavailable Salzhauer, Kristian Mancera MD Unavailable Unavailable Salzhauer, Kristian Mancera MD Unavailable Unavailable Salzhauer, Kristian Mancera MD Unavailable Unavailable Salzhauer, Kristian Mancera MD Unavailable Unavailable Salzhaamena, Kristian Mancera MD Unavailable Unavailable Salzmary, Kristian Mancera MD Unavailable Unavailable Salzmary, Kristian Mancera MD Unavailable Unavailable Salzmary, Kristian Mancera MD Unavailable Unavailable Salzmary, Kristian Mancera MD Unavailable Unavailable Salzhaamena, Kristian Mancera MD Unavailable Unavailable Salzhaamena, Kristian Mancera MD Unavailable Unavailable Salzhauer, W Calderon MD Unavailable Unavailable Salzhauer, W Calderon MD Unavailable Unavailable Salzhauer, W Calderon MD Unavailable Unavailable Salzhauer, W Calderon MD Unavailable Unavailable Salzhauer, W Calderon MD Unavailable Unavailable Salzhauer, W Calderon MD Unavailable Unavailable Salzhauer, W Calderon MD Unavailable Unavailable Salzhauer, W Calderon MD Unavailable Unavailable Salzhauer, W Calderon MD Unavailable Unavailable Salzhauer, W Calderon MD Unavailable Unavailable Salzhauer, W Calderon MD Unavailable Unavailable Salzhauer, W Calderon MD Unavailable Unavailable Salzhauer, W Calderon MD Unavailable Unavailable Salzhauer, W Calderon MD Unavailable Unavailable Salzhauer, W Calderon MD Unavailable Unavailable Salzhauer, W Calderon MD Unavailable Unavailable Salzhauer, W Calderon MD Unavailable Unavailable Salzhauer, W Calderon MD Unavailable Unavailable Salzhauer, W Calderon MD Unavailable Unavailable Salzhauer, W Calderon MD Unavailable Unavailable Salzhauer, W Calderon MD Unavailable Unavailable Salzhauer, W Calderon MD Unavailable Unavailable Salzhauer, W Calderon MD Unavailable Unavailable Salzhauer, W Calderon MD Unavailable Unavailable Salzhauer, W Calderon MD Unavailable Unavailable Salzhauer, W Calderon MD Unavailable Unavailable Salzhauer, W Calderon MD Unavailable Unavailable Salzhauer, W Calderon MD Unavailable Unavailable Salzhauer, W Calderon MD Unavailable Unavailable Re-disclosure Warning The records that you are about to access may contain information from federally-assisted alcohol or drug abuse programs. If such information is present, then the following federally mandated warning applies: This information has been disclosed to you from records protected by federal confidentiality rules (42 CFR part 2). The federal rules prohibit you from making any further disclosure of this information unless further disclosure is expressly permitted by the written consent of the person to whom it pertains or as otherwise permitted by 42 CFR part 2. A general authorization for the release of medical or other information is NOT sufficient for this purpose. The Federal rules restrict any use of the information to criminally investigate or prosecute any alcohol or drug abuse patient.The records that you are about to access may contain highly sensitive health information, the redisclosure of which is protected by Article 27-F of the [facility] Public Health law. If you continue you may have access to information: Regarding HIV / AIDS; Provided by facilities licensed or operated by the [facility] Office of Mental Health; or Provided by the [facility] Office for People With Developmental Disabilities. If such information is present, then the following [facility] mandated warning applies: This information has been disclosed to you from confidential records which are protected by state law. State law prohibits you from making any further disclosure of this information without the specific written consent of the person to whom it pertains, or as otherwise permitted by law. Any unauthorized further disclosure in violation of state law may result in a fine or alf sentence or both. A general authorization for the release of medical or other information is NOT sufficient authorization for further disc losure. Allergies and Adverse Reactions Type Description Substance Reaction Status Data Source(s ) Propensity to adverse reactions THIMEROSAL Thimerosal Acti ve [facility] Family History Family Member Name Family Member Gender Family Member Status Date o f Status Description Data Source(s) Unknown Unknown Problem [facility] ([facility] [place] Encounters Encounter Providers Location Date Indications Data Source(s ) Outpatient Attender: HILARIA CHRISTENSEN MD BF-BF 05/22/2021 12:00:00 AM EDT [facility] ([facility]) .[facility] 05/16/2021 12:00:00 AM EDT eCW1 ([facility]) ([facility]) .[facility] 05/15/2021 12:00:00 AM EDT eCW1 ([facility]) Outpatient Attender: Kylee Payton/Elsa/Pam walsh/Deven 05/12/2021 09:45:00 AM EDT [facility] ([facility], ) Outpatient Attender: Calderon Haile/ Shira dasilva 04/20/2021 11:15:00 AM EDT [facility] ([facility] Outpatient 04/14/2021 11:00:00 AM EDT [facility] 04/07/2021 12:00:00 AM EDT eCW1 ([facility]) Outpatient Attender: HILARIA CHRISTENSEN MD BF-BF 021 07:08:59 AM EDT - 11/19/2020 09:32:[address] [facility] Outpatient Attender: Hawk Meyer MDReferrer: KAYLEE LEMUS MD 05/13/2020 03:38:34 PM EDT [facility] Outpatient Attender: Hawk Meyer MDReferrer: KAYLEE LEMUS MD 04/22/2020 08:57:10 PM EDT [facility] Immunizations Vaccine Date Status Description Data Source(s) COVID-19 VACCINE [employer] 12/05/2020 12:00:00 AM EDT completed [facility] Vaccine Series Complete: YESThis Data wa s Submitted to [facility] Via [employer]. COVID-19 VACCINE Pfizer 11/14/2020 12:00:00 AM EST completed [facility] Vaccine Series Complete: NOThis Data was Submitted to [facility] Via [employer]. Medications Medication Brand Name Start Date Product Form Dose Route Admi nistrative Instructions Pharmacy Instructions Status Indications Reaction Description Data Source(s) POLYETHYLENE GLYCOL 3350 142 MG/ML Oral Solution [Miralax] M iralax 05/12/2021 12:00:00 AM EDT ORAL active M [facility]ENT ([facility], ) Bisacodyl 5 MG Delayed Release Oral Tablet [Dulcolax] Dulcol ax 05/12/2021 12:00:00 AM EDT ORAL active M EDENT ([facility], ) POLYETHYLENE GLYCOL 3350 142 MG/ML Oral Solution [Miralax] M iralax 05/12/2021 12:00:00 AM EDT active M [facility]ENT ([facility], ) Dutasteride 0.5 MG Oral Capsule [Avodart] Avodart 04/20/2021 1 2:00:00 AM EDT ORAL active [facility] ([facility]) Furosemide 20 MG Oral Tablet Furosemide 20 MG 03/31/2021 12:00:00 A M EDT 1.0 {tablet} active Furosemide 20 MG eCW1 ( [facility]) Furosemide 20 MG Oral Tablet Furosemide 20 MG 03/31/2021 12:00:00 A M EDT 1.0 {tablet} active Furosemide 20 MG eCW1 ( [facility]) Furosemide 20 MG Oral Tablet Furosemide 20 MG 03/31/2021 12:00:00 A M EDT 1.0 {tablet} active Furosemide 20 MG eCW1 ( [facility]) Furosemide 20 MG Oral Tablet furosemide (LASIX) 20 MG tablet furosemide (LASIX) 20 MG tablet 08/16/2019 12:00:00 AM EST 20 mg Oral abort ed Take 1 tablet (20 mg total) by mouth daily [facility] 0.5 ML dulaglutide 1.5 MG/ML Auto-Inject or [Trulicity] TRULICITY 0.75 MG/0.5ML SOPN TRULICITY 0.75 MG/0.5ML SOPN 06/13/2019 12:00:00 AM EDT 0.75 mg Subcutaneous aborted Inject 0.75 mg un syd the skin once a week [facility] Apple Cider Vinegar 600 MG Oral Capsule Apple Cider Vi tamie 600 MG CAPS Apple Cider Vinegar 600 MG CAPS Oral aborted Take by mouth daily [facility] Naproxen sodium 220 MG Oral Tablet naproxen sodium (AL TAMICA) 220 MG tablet naproxen sodium (ALEVE) 220 MG tablet 220 mg Oral aborted Take 220 mg by mouth as needed for pain [facility] Cholecalciferol 5000 UNT Oral Capsule Ch olecalciferol (VITAMIN D3) 5000 units CAPS Cholecalciferol (VITAMIN D3) 5000 units CAPS 44989 {caps ule} Oral aborted Take 15,000 capsules by mouth da sydni [facility] Carboxymethylcellulose Sodium 5 MG/ML Op hthalmic Solution Carboxymethylcellulose Sod PF (RETAINE [facility]) 0.5 % SOLN Carboxymethylcellulose Sod PF (RETAINE C [facility]) 0.5 % SOLN Ophthalmic aborted Apply to ey e daily [facility] Insurance Providers Payer name Policy type / Coverage type Policy ID Covered green party ID Covered green party's relationship to giang Policy Giang Plan Information MVP Gold/MCR Plan Commercial [id number] Self MVP Gold Medicare F [id number] SELF [id number] [facility] MEDICARE Medicare [id number] xxxxxxxxxxxx [id number] EXCELL[employer] BCBS MEDICARE [id number] Alysha [id number] Blue [facility] Medicare P [id number] SELF [id number] ANSI-Medicare Part B [id number] MEDICARE BLUE PPO 306 [id number] SP [id number] BCBS Excellus Medicare Commercial [id number] Self V [id number] EXCELLUS BS B [id number] S VYM [id number] BCBS Medicare Blue U/W Commercial [id number] Self Excellus/Medicare Ppo Commercial [id number] Self BCBS - Medicare Blue Ppo Commercial [id number] Self MVP HEALTH CARE P [id number] S [id number] MEDICARE [id number] SP [id number] A [facility] [id number] SP [id number] MEDICARE BLUE PPO [id number] SP [id number] [facility] Blue PPO [id number] Excellus Medicare Blue PPO UNAVAILABLE 18 UNAVAILABLE [facility] [id number] 18 [id number] MEDICARE BLUE PPO 306 [id number] SP [id number] Problems, Conditions, and Diagnoses Code Display Name Description Problem Type Effective Dates Data Source(s) I12.9 Chronic kidney disease due to hypertensi on Hypertensive chronic kidney disease with stage 1 through stage 4 chronic kidney disease, or unspecified chronic kidney disease Problem 11/04/2020 12:00:00 AM EST eCW1 ([facility]) E66.9 Obesity Obesity, unspecified Problem 11/04/2020 12:0 0:00 AM EST eCW1 ([facility]) N18.31 Chronic Kidney Disease Stage 3, GFR 59-4 5 Chronic Kidney Disease Stage 3, GFR 59-45 Problem 11/04/2020 12:00:00 AM EST eCW1 ([facility]) R60.0 Localized edema Localized edema Problem 11/04/2020 12:0 0:00 AM EST eCW1 ([facility]) Surgeries/Procedures Procedure Description Date Indications Data Source(s) OFFICE OUTPATIENT NEW 30 MINUTES 05/12/2021 12:00:00 A M EDT [facility] ([facility], ) ROSALVA POST-VOIDING RESIDUAL URINE&/BLDR CAP 04/20/2021 12:00:00 AM EDT [facility] ([facility]) OFFICE OUTPATIENT VISIT 25 MINUTES 04/20/2021 12:00:00 AM EDT [facility] ([facility]) Results ID Date Data Source [id number] 05/22/2021 09:15:02 AM EDT [facility] NT INFORMATIONPatient MRN Name Date of Age Gend*PT [id number] RositaJesus musaley 1940 80 years M ---PT Location Admission Date/Time Visit ID Attending Provider --- --- --- --- EPI ID CSN Admitting Provider [id number] ---Cardiology History and PhysicalName: Radha Jimenez Gender: maleDate of : 1940 Age: 80 yearsPrimary Care Provider / Referring Physician: KAYLEE LEMUS, [facility] Telemedicine VisitPatient was identified by name and date of .Verbal consent was obtained from the patient for this telemedicine visit.Patient is aware of the risks, limitations, and benefits of a telemedicinevisit.This telemedicine assessment was conducted remotely with the assistance ofNibiruTech Limitedication technology: Telephone Only Codes 88611: 21- 30 minutes of medicaldiscussion: Telephone OnlyCurrent HistoryChief Complaint: This is a Telemedicine visitHPI:This patient is a 80 years male with the following updated problem list:1. Coronary artery disease: He underwent a previous procedure of a stent yearsago and then in 2015 required treatment with the circumflex drug-eluting stentat that time.2. Hyperlipidemia3. Hypertension4. Moderate obesity with sleep apnea he is an avid user of his CPAP5. August 2019 Lexiscan nuclear stress test and echocardiogram were all normalwith normal ejection fraction and no evidence of ischemia6. CKD this is stage 3This is a follow up visitReview of Systems General Denies dizziness or lightheadedness. Denies any recent, unexpectedweight changes. HEENT Denies any loss or change of vision. Denies tinnitus. Respiratory Denies PND, orthopnea, HART, hemoptysis, cough, or shortness ofbreath. Cardiac Denies chest pain or pressure, denies palpitations GI Denies melena, hematochezia, nausea, or vomiting. MS Denies any lower extremity edema. Neuro Denies speech, motor, or sensory impairment. Psych Denies depression or anxiety. Endo Denies polyuria or polydipsia, denies temperature intolerance. Derm Denies diaphoresis, non-healing skin woundsPast HistoryPast Medical History:Diagnosis Date Coronary artery disease DM2 (diabetes mellitus, type 2) Essential hypertension Former heavy tobacco smoker History of TIA (transient ischemic attack) Hyperlipidemia KAREN on CPAP Prostate cancer S/P coronary artery stent placementPast Surgical History:Procedure Laterality Date CARDIAC CATHETERIZATION CORONARY ANGIOPLASTY WITH STENT PLACEMENT HIP SURGERY Bilateral 2010 replacement JOINT REPLACEMENT TONSILLECTOMYFamily HistoryProblem Relation Age of Onset Coronary artery disease MotherSocial HistorySocioeconomic History Marital status: Spouse name: Not on file Number of children: Not on file Years of education: Not on file Highest education level: Not on fileOccupational History Not on fileTobacco Use Smoking status: Former Smoker Quit date: 2005 Years since quittin.7 Smokeless tobacco: Never Used Tobacco comment: was heavy smoker in past 07/2006Substance and Sexual Act ivity Alcohol use: Yes Comment: RARE Drug use: No Sexual activity: Not on fileOther Topics Concern Bike Helmet Not Asked History of Falls Not Asked Self-Exams Not Asked Caffeine Concern Not Asked Hobby Hazards Not Asked Sleep Concern Not Asked Daily Calcium Supplement Not Asked Lead Exposure Not Asked Special Diet Not Asked Daily Vitamin D Supplement Not Asked Service Not Asked Stress Concern Not Asked Domestic Violence in home Not Asked Radon exposure Not Asked Weight Concern Not Asked Exercise Not Asked Seat Belt Not Asked Well water Not Asked Firearms in home Not AskedSocial History Narrative Not on fileSocial Determinants of HealthFinancial Resource Strain: Difficulty of Paying Living Expenses:Food Insecurity: Worried About Running Out of Food in the Last Year: Ran Out of Food in the Last Year:Transportation Needs: Lack of Transportation (Medical): Lack of Transportation (Non-Medical):Physical Activity: Days of Exercise per Week: Minutes of Exercise per Session:Stress: Feeling of Stress :Social Connections: Frequency of Communication with Friends and Family: Frequency of Social Gatherings with Friends and Family: Attends Scientology Services: Active Member of Clubs or Organizations: Attends Club or Organization Meetings: Marital Status:Intimate Partner Violence: Fear of Current or Ex-Partner: Emotionally Abused: Physically Abused: Sexually Abused:Medications and AllergiesALLERGIES/SENSITIVITIES: [place] extract, Penicillins, and ThimerosalCurrent Outpatient Medications: acetaminophen (TYLENOL) 500 MG tablet, Take 1,300 mg by mouth 2 (two) times aday , Disp: , Rfl: Ascorbic Acid (VITAMIN C) 1000 MG tablet, Take 1,000 mg by mouth daily, Disp:, Rfl: aspirin 325 MG tablet, Take 325 mg by mouth daily, Disp: , Rfl: B Complex-C (SUPER B COMPLEX PO), Take by mouth daily, Disp: , Rfl: buPROPion (WELLBUTRIN SR) 150 MG 12 hr tablet, Take 150 mg by mouth daily , Disp: , Rfl: buPROPion (WELLBUTRIN XL) 300 MG 24 hr tablet, Take 300 mg by mouth daily,Disp: , Rfl: CETIRIZINE HCL PO, Take by mouth as needed , Disp: , Rfl: docusate sodium (COLACE) 100 MG capsule, Take 100 mg by mouth 2 (two) times aday, Disp: , Rfl: Dulaglutide (TRULICITY) 1.5 MG/0.5ML SOPN, Inject 1.5 mg under the skin oncea week, Disp: , Rfl: dutasteride (AVODART) 0.5 MG capsule, Take 0.5 mg by mouth daily, Disp: ,Rfl: Ferrous Gluconate (IRON 27 PO), Take by mouth daily, Disp: , Rfl: ketoconazole (NIZORAL) 2 % shampoo, Apply topically 2 (two) times a week,Disp: , Rfl: KETOCONAZOLE, TOPICAL, 1 % SHAM, Apply topically 2 (two) times a week, Disp:, Rfl: lisinopril-hydrochlorothiazide (PRINZIDE,ZESTORETIC) 20-25 MG per tablet, Take 1 tablet by mouth daily, Disp: 90 tablet, Rfl: 3 Melatonin 10 MG TABS, Take 20 tablets by mouth daily, Disp: , Rfl: Multiple Vitamins-Minerals (CENTRUM SILVER PO), Take by mouth daily, Disp: ,Rfl: Multiple Vitamins-Minerals (PRESERVISION AREDS 2 PO), Take by mouth daily,Disp: , Rfl: nitroglycerin (NITROSTAT) 0.4 MG SL tablet, Place 1 tablet (0.4 mg total)under the tongue every 5 (five) minutes as needed for chest pain, Disp: 25tablet, Rfl: 5 oxymetazoline (AFRIN) 0.05 % nasal spray, 2 sprays into each nostril 2 (two)times a day, Disp: , Rfl: rosuvastatin (CRESTOR) 40 MG tablet, Take 1 tablet (40 mg total) by mouthdaily, Disp: 90 tablet, Rfl: 3 tamsulosin (FLOMAX) 0.4 MG CAPS, Take 0.4 mg by mouth daily, Disp: , Rfl: TURMERIC PO, Take by mouth daily, Disp: , Rfl: vitamin E 400 UNIT capsule, Take 400 Units by mouth daily, Disp: , Rfl: Ketotifen Fumarate (ALAWAY OP), Apply to eye daily, Disp: , Rfl:PhysicalPHYSICAL EXAM: Deferred due to Telemedicine encounterBP 115/69 | Wt (!) 113.8 kg (250 lb 12.8 oz) | BMI 37.04 kg/m DiagnosticsLabNoneImaging/Testing: NoneEKG: NoneAssessment & PlanASSESSMENT/PLAN:1. CAD: no CP and knows to contact us if anything changes or call 911 foremergencies2. HTN: this is well controlled3. KAREN: Uses his CPAP4. CKD: sees his nephrologist5. Dyslipidemia: controlledI have spent 15 minutes with the patient, counseling/coordinating the patient'scare.I discussed the above listed diagnoses and discussed Prognosis, Managementoption risks and benefits, Treatment/management instructions, Compliance andRisk Factor ReductionFollow up has been arranged and the patient knows to call if any issues arisebetween now and then, all question were answered.Signature: Hilaria Christensen, MDDate: May 22, 2021Time: 9:01 AMThis document or parts of this document, were dictated using [employer]. A reasonable attempt at proofreading has been made to minimize errors.Please call with any questions or corrections. Name Value Range Interpretation Code Description Data Elyse rce(s) Supporting Document(s) ID Date Data Source [id number] 04/20/2021 11:13:00 AM EDT [facility] ([facility]) Name Value Range Interpretation Code Description Data Elyse rce(s) Supporting Document(s) Protein [Presence] in Urine by Test strip Laboratory test result [facility] ([facility]) Glucose [Presence] in Urine Laboratory test result [facility] ([facility]) Ua Nitrite Laboratory test result ME DENT ([facility]) Blood [Presence] in Urine by Visual Laboratory test result [facility] ([facility]) Ua Leuko Laboratory test result ME DENT ([facility]) Color of Urine Laboratory test result [facility] ([facility]) Ketones [Presence] in Urine by Test strip Laboratory test result [facility] ([facility]) pH of Urine by Test strip 5.0 5.0-7.5 [facility] ([facility]) Clarity of Urine Laboratory test result [facility] ([facility]) Ua Specific Gilliam 1.020 1.003-1.030 MEDE NT ([facility]) Bilirubin.total [Presence] in Urine by Test strip Laboratory test res ult [facility] ([facility]) Urobilinogen [Mass/volume] in Urine by Test strip 0.2 E.U./dL 0.0-1.0 [facility] ([facility]) ID Date Data Source [id number] 04/14/2021 01:24:00 PM EDT [facility] ([facility]) Name Value Range Interpretation Code Description Data Elyse rce(s) Supporting Document(s) Creatinine [Mass/volume] in Serum or Plasma 1.99 mg/dL 0.72-1.25 [facility] ([facility]) eGFR -- Non- Descent 31.7 [facility] ([facility]) eGFR - Descent 38.5 ME DENT ([facility]) ID Date Data Source [id number] 04/14/2021 01:24:00 PM EDT [facility] ([facility]) Name Value Range Interpretation Code Description Data Elyse rce(s) Supporting Document(s) Urea nitrogen [Mass/volume] in Serum or Plasma 43.0 mg/dL 7.0-24.0 [facility] ([facility]) ID Date Data Source [id number] 04/14/2021 01:24:00 PM EDT [facility] ([facility]) Name Value Range Interpretation Code Description Data Elyse rce(s) Supporting Document(s) Prostate specific Ag [Mass/volume] in Serum or Plasma 4.98 ng/mL 0.00 -4.10 [facility] ([facility]) ID Date Data Source [id number] 04/14/2021 02:01:00 PM EDT [facility] MDR 5000 [facility] MR I PROSTATE INDICATION: Malignant neoplasm of prostate COMPARISON: 08/25/2016 MRI TECHNIQUE: Multiplanar, multisequence MRI images were obtained of the prostate with and without IV contrast. This examination was performed with 10 mL ProHance IV contrast from a 10 mL bottle. FINDINGS: The prostate gland measures 6.6 x 5.1 x 6.6 cm, corresponding with an estimated weight of 116 g. Multiple BPH nodules are seen in the central gland. The peripheral zone is somewhat heterogeneous. There is significant thinning of the peripheral zone by the central gland. The seminal vesicles are normal. Lesion 1: Left posterior mid transition zone. Axial T2- weighted images 20 through 22 of series 4.Greatest dimension: 1.6 cm. No extraprostatic extension.T2-weighted MRI score = 3, DW MRI score = 3, DCE MRI score = positive.Overall PIRADS Score: 3/5 Axial T1-weighted images of the pelvis demonstrate no xander disease and no bony metastases. There are bilateral hip prostheses. IMPRESSION: 1. Lesion 1, left posterior mid transition zone (PI-RADS 3). No extraprostatic extension.2. BPH findings. Estimated prostatic weight of 116 g. Seminal vesicles are normal.3. There is no xander disease and no bony metastases. Professional interpretation performed at [facility] . Name Value Range Interpretation Code Description Data Elyse rce(s) Supporting Document(s) ID Date Data Source VENIPUNCTURE OP 04/07/2021 12:00:00 AM EDT eCW1 ([facility]) Name Value Range Interpretation Code Description Data Elyse rce(s) Supporting Document(s) VENIPUNCTURE VENIPUNCTURE eCW1 ([facility]) ID Date Data Source UA MICRO 04/07/2021 12:00:00 AM EDT eCW1 ([facility]) Name Value Range Interpretation Code Description Data Elyse rce(s) Supporting Document(s) 11-25 0-5 WBC /HPF eCW1 ([facility]) RARE 0-2 RBC /HPF eCW1 ([facility]) NONE SEEN SQUAM EPI/hpv eCW1 ([facility]) NONE SEEN NONE SEEN RENAL EPI/hpf eCW1 ([facility]) NONE SEEN NONE SEEN TRANS EPI/hpf eCW1 ([facility]) 1+ NONE SEEN BACTERIA/LPF eCW1 ([facility]) NONE SEEN NONE SEEN MUCOUS/hpf [facility]1 ([facility]) NONE SEEN NONE SEEN OTHER /hpf eCW1 ([facility]) NONE SEEN NONE SEEN CRS GRAN BOX SPRING MAKER eCW1 ([facility]) NONE SEEN NONE SEEN F GRAN B[employer] SPRING MAKER/LPF eCW1 ([facility]) NONE SEEN NONE SEEN HYALINE BOX SPRING MAKER/LPF eCW1 ([facility]) NONE SEEN NONE SEEN WBC CAST eCW1 ([facility]) NONE SEEN NONE SEEN CELLULAR CAST eCW1 ([facility]) NONE SEEN NONE SEEN CA OX MAINE eCW1 ([facility]) NONE SEEN NONE SEEN RBC CAST eCW1 ([facility]) NONE SEEN NONE SEEN OTHER CAST [facility]1 ([facility]) NEGATIVE NEGATIVE URIC ACID MAINE eCW1 ([facility]) NONE SEEN NONE SEEN YEAST eCW1 ([facility] NONE SEEN NONE SEEN TRIPHOSPH CRY eCW1 ([facility]) NONE PRESENT SPERMATAZOA eCW1 ([facility]) NONE SEEN NONE SEEN TRICHOMONAS eCW1 ([facility]) ID Date Data Source [id number]-[id number] 04/07/2021 12:00:00 AM EDT eCW1 ([facility]) Name Value Range Interpretation Code Description Data Elyse rce(s) Supporting Document(s) Yellow YELLOW COLOR eCW1 ([facility]) 5.5 5.0 - 8.0 PH eCW1 ([facility]) 1.025 SPEC.GRAV. eCW1 ([facility]) Clear CLEAR CLARITY eCW1 ([facility]) Negative NEGATIVE KETONES eCW1 ([facility]) Negative NEGATIVE BILIRUBIN eCW1 ([facility] Negative NEGATIVE PROTEIN eCW1 ([facility]) Negative NEGATIVE GLUCOSE eCW1 ([facility]) Negative NEGATIVE BLOOD eCW1 ([facility]) 0.2 0.2-1.0 UROBILINOGEN eCW1 ([facility]) Negative NEGATIVE NITRITE eCW1 ([facility]) 1+ NEGATIVE LEUKOCYTES eCW1 ([facility]) ID Date Data Source CBC w/DIFF 04/07/2021 12:00:00 AM EDT eCW1 ([facility]) Name Value Range Interpretation Code Description Data Elyse rce(s) Supporting Document(s) 11.2 4.1-10.9 WBC eCW1 ([facility]) 99.0 80.0-97.0 MCV eCW1 ([facility]) 4.20 4.20-6.30 RBC eCW1 ([facility]) 41.6 36.0-51.0 HCT eCW1 ([facility]) 13.6 12.0-18.0 HGB eCW1 ([facility]) 32.7 31.0-36.0 MCHC eCW1 ([facility]) 267 140-440 PLT eCW1 ([facility]) 32.4 26.0-32.0 MCH eCW1 ([facility]) 8.5 7.4-10.4 MPV eCW1 ([facility]) 45.8 35.1-43.9 RDW-SD eCW1 ([facility]) 12.2 11.5-15.5 RDW-CV eCW1 ([facility]) 7.41 1.60-6.10 NEUT # eCW1 ([facility]) 1.09 0.20-0.90 MONO # eCW1 ([facility]) 2.29 0.60-4.10 LYMPH # eCW1 ([facility]) 0.37 0.00-0.50 EO # eCW1 ([facility]) 0.03 0.00-0.10 BASO # eCW1 ([facility]) 66.0 34.0-71.1 NEUT % eCW1 ([facility]) 9.7 10.0-58.5 MONO % eCW1 ([facility]) 3.3 0.7-7.0 EO % eCW1 ([facility]) 20.4 10.0-58.5 LYMPH % eCW1 ([facility]) 0.3 0.1-1.2 BASO % eCW1 ([facility]) 0.03 LOW IG# eCW1 ([facility]) 0.30 0.00-0.43 IG% eCW1 ([facility]) ID Date Data Source Urine Protein.Creat ratio 04/07/2021 12:00:00 AM EDT eCW1 ([facility]) Name Value Range Interpretation Code Description Data Elyse rce(s) Supporting Document(s) 0.1 0.0-0.2 U-PROT/CREAT eCW1 ([facility]) 14.5 6.0-11.9 U-PROTEIN eCW1 ([facility]) 154.8 30.0-125.0 U-CREA eCW1 ([facility]) ID Date Data Source RENAL FUNCTION 04/07/2021 12:00:00 AM EDT eCW1 ([facility]) Name Value Range Interpretation Code Description Data Elyse rce(s) Supporting Document(s) 3.9 3.4-5.0 ALBUMIN eCW1 ([facility]) 29 7-18 BUN eCW1 ([facility]) 41.64 >=60.00 GFR NON-AFR.AM eCW1 ([facility]) 1.7 0.6-1.3 CREATININE eCW1 ([facility]) 50.38 >=60.00 GFR AFR.AM eCW1 ([facility]) 9.1 8.5-10.1 CALCIUM eCW1 ([facility]) 141 135-145 SODIUM eCW1 ([facility] 106 100-108 CHLORIDE eCW1 ([facility]) 4.2 3.6-5.2 POTASSIUM eCW1 ([facility]) 28.6 21.0-32.0 CO2 eCW1 ([facility]) 97.0 70.0-110.0 GLUCOSE eCW1 ([facility]) 3.2 2.5-4.9 PHOSPHORUS eCW1 ([facility]) 6 5-15 ANION GAP eCW1 ([facility]) ID Date Data Source [id number] 11/19/2020 09:33:07 AM EDT [facility] INFORMATIONPatient MRN Name Date of Age Gend*PT [id number] Radah Jimenez 1940 79 years M ---PT Location Admission Date/Time Visit ID Attending Provider --- --- --- --- EPI ID CSN Admitting Provider [id number] ---Cardiology History and PhysicalName: Radha Jimenez Gender: maleDate of : 1940 Age: 79 yearsPrimary Care Provider / Referring Physician: KAYLEE LEMUS, [facility] Telemedicine VisitPatient was identified by name and date of .Verbal consent was obtained from the patient for this telemedicine visit.Patient is aware of the risks, limitations, and benefits of a telemedicinevisit.This telemedicine assessment was conducted remotely with the assistance ofJustShareItommunication technology: Telephone Only Codes 63953: 21- 30 minutes of medicaldiscussion: Telephone OnlyCurrent HistoryChief Complaint: This is a Telemedicine visitHPI:This patient is a 79 years male with the following updated problem list:1. Coronary artery disease: He underwent a previous procedure of a stent and then in 2016 required treatment with the circumflex drug-eluting stentat that time.2. Hyperlipidemia3. Hypertension4. Moderate obesity with sleep apnea he is an avid user of his CPAP5. August 2019 Lexiscan nuclear stress test and echocardiogram were allnormal with normal ejection fraction and no evidence of ischemia6. CKD this is stage 3This is a follow-up visitReview of Systems General Denies dizziness or lightheadedness. Denies any recent, unexpectedweight changes. HEENT Denies any loss or change of vision. Denies tinnitus. Respiratory Denies PND, orthopnea, HART, hemoptysis, cough, or shortness ofbreath. Cardiac Denies chest pain or pressure, denies palpitations GI Denies melena, hematochezia, nausea, or vomiting. MS Denies any lower extremity edema. Neuro Denies speech, motor, or sensory impairment. Psych Denies depression or anxiety. Endo Denies polyuria or polydipsia, denies temperature intolerance. Derm Denies diaphoresis, non-healing skin woundsPast HistoryPast Medical History:Diagnosis Date Coronary artery disease DM2 (diabetes mellitus, type 2) Essential hypertension Former heavy tobacco smoker History of TIA (transient ischemic attack) Hyperlipidemia KAREN on CPAP Prostate cancer S/P coronary artery stent placementPast Surgical History:Procedure Laterality Date CARDIAC CATHETERIZATION CORONARY ANGIOPLASTY WITH STENT PLACEMENT HIP SURGERY Bilateral 2010 replacement JOINT REPLACEMENT TONSILLECTOMYFamily HistoryProblem Relation Age of Onset Coronary artery disease MotherSocial HistorySocioeconomic History Marital status: Spouse name: Not on file Number of children: Not on file Years of education: Not on file Highest education level: Not on fileOccupational History Not on fileSocial Needs Financial resource strain: Not on file Food insecurity: Worry: Not on file Inability: Not on file Transportation needs: Medical: Not on file Non-medical: Not on fileTobacco Use Smoking status: Former Smoker Last attempt to quit: 2005 Years since quittin.2 Smokeless tobacco: Never Used Tobacco comment: was heavy smoker in past 07/2006Substance and Sexual Activity Alcohol use: Yes Comment: RARE Drug use: No Sexual activity: Not on fileLifestyle Physical activity: Days per week: Not on file Minutes per session: Not on file Stress: Not on fileRelationships Social connections: Talks on phone: Not on file Gets together: Not on file Attends islam service: Not on file Active member of club or organization: Not on file Attends meetings of clubs or organizations: Not on file Relationship status: Not on file Intimate partner violence: Fear of current or ex partner: Not on file Emo tionally abused: Not on file Physically abused: Not on file Forced sexual activity: Not on fileOther Topics Concern Bike Helmet Not Asked History of Falls Not Asked Self-Exams Not Asked Caffeine Concern Not Asked Hobby Hazards Not Asked Sleep Concern Not Asked Daily Calcium Supplement Not Asked Lead Exposure Not Asked Special Diet Not Asked Daily Vitamin D Supplement Not Asked Service Not Asked Stress Concern Not Asked Domestic Violence in home Not Asked Radon exposure Not Asked Weight Concern Not Asked Exercise Not Asked Seat Belt Not Asked Well water Not Asked Firearms in home Not AskedSocial History Narrative Not on fileMedications and AllergiesALLERGIES/SENSITIVITIES: [place] extract; Penicillins; and ThimerosalCurrent Outpatient Medications: acetaminophen (TYLENOL) 500 MG tablet, Take 1,000 mg by mouth 2 (two) times aday, Disp: , Rfl: Carboxymethylcellulose Sod PF (RETAINE CMC) 0.5 % SOLN, Apply to eye daily,Disp: , Rfl: Dulaglutide (TRULICITY) 1.5 MG/0.5ML SOPN, Inject 1.5 mg under the skin oncea week, Disp: , Rfl: KETOCONAZOLE, TOPICAL, 1 % SHAM, Apply topically 2 (two) times a week, Disp:, Rfl: Ketotifen Fumarate (ALAWAY OP), Apply to eye daily, Disp: , Rfl: Melatonin 10 MG TABS, Take 20 tablets by mouth daily, Disp: , Rfl: Multiple Vitamins-Minerals (PRESERVISION AREDS 2 PO), Take by mouth daily,Disp: , Rfl: oxymetazoline (AFRIN) 0.05 % nasal spray, 2 sprays into each nostril 2 (two)times a day, Disp: , Rfl: Ascorbic Acid (VITAMIN C) 1000 MG tablet, Take 1,000 mg by mouth daily, Disp:, Rfl: aspirin 325 MG tablet, Take 325 mg by mouth daily, Disp: , Rfl: B Complex-C (SUPER B COMPLEX PO), Take by mouth daily, Disp: , Rfl: buPROPion (WELLBUTRIN SR) 150 MG 12 hr tablet, Take 150 mg by mouth daily ,Disp: , Rfl: buPROPion (WELLBUTRIN XL) 300 MG 24 hr tablet, Take 300 mg by mouth daily,Disp: , Rfl: CETIRIZINE HCL PO, Take by mouth as needed , Disp: , Rfl: Cholecalciferol (VITAMIN D3) 5000 units CAPS, Take 15,000 capsules by mouthdaily , Disp: , Rfl: docusate sodium (COLACE) 100 MG capsule, Take 100 mg by mouth 2 (two) times aday, Disp: , Rfl: Ferrous Gluconate (IRON 27 PO), Take by mouth daily, Disp: , Rfl: ketoconazole (NIZORAL) 2 % shampoo, Apply topically 2 (two) times a week,Disp: , Rfl: lisinopril-hydrochlorothiazide (PRINZIDE,ZESTORETIC) 20-25 MG per tablet,Take 1 tablet by mouth daily, Disp: 90 tablet, Rfl: 3 Multiple Vitamins-Minerals (CENTRUM SILVER PO), Take by mouth daily, Disp: ,Rfl: nitroglycerin (NITROSTAT) 0.4 MG SL tablet, Place 1 tablet (0.4 mg to zander)under the tongue every 5 (five) minutes as needed for chest pain, Disp: 25tablet, Rfl: 5 rosuvastatin (CRESTOR) 40 MG tablet, Take 1 tablet (40 mg total) by mouthdaily, Disp: 90 tablet, Rfl: 3 tamsulosin (FLOMAX) 0.4 MG CAPS, Take 0.4 mg by mouth daily, Disp: , Rfl: TURMERIC PO, Take by mouth daily, Disp: , Rfl: vitamin E 400 UNIT capsule, Take 400 Units by mouth daily, Disp: , Rfl:PhysicalPHYSICAL EXAM: Deferred due to Telemedicine encounterBP 101/64 | Pulse 69 | Wt (!) 112 kg (247 lb) | BMI 36.48 kg/m DiagnosticsLabBUN 35 creat 1.7 GFR 41%Imaging/Testing: NoneEKG: NoneAssessment & PlanASSESSMENT/PLAN:1. Coronary artery disease: The patient has no symptoms and knows to contact meif he has any new symptoms or call 911 for emergencies.2. Dyslipidemia: The patient remains on a statin and has had a good result inthe past3. Essential hypertension: This is well controlled4. Sleep apnea: The patient does use CPAP5. New diagnosis of stage 3 CKD and seeing nephrologistI have spent 15 minutes with the patient, counseling/coordinating the patient'scare.I discussed the above listed diagnoses and discussed Prognosis, Managementoption risks and benefits, Treatment/management instructions, Compliance andRisk Factor ReductionFollow up has been arranged and the patient knows to call if any issues arisebetween now and then, all question were answered.Signature: Hilaria Christensen, MDDate: November 19, 2020Time: 9:20 AMThis document or parts of this document, were dictated using [employer]. A reasonable attempt at proofreading has been made to minimize errors.Please call with any questions or corrections. Name Value Range Interpretation Code Description Data Elyse rce(s) Supporting Document(s) ID Date Data Source [id number] 11/07/2020 05:53:30 PM EST Laboratory [facility] Name Value Range Interpretation Code Description Data Elyse rce(s) Supporting Document(s) TOTAL PROTEIN 6.8 g/dL (6.4-8.2) [facility] [facility] TOTAL PROTEIN EPP 6.8 g/dL (6.4-8.2) [facility] ALBUMIN CALC 4.5 g/dL (3.9-5.1) [facility] ALPHA 1 CALC 0.2 g/dL (0.1-0.3) [facility] ALPHA 2 CALC 1.0 g/dL (0.4-1.0) [facility] BETA CALC 0.7 g/dL (0.5-1.1) [facility] [place] [facility] [place] [facility] GAMMA CALC 0.5 g/dL (0.4-1.2) [facility] [place] [facility] MONOCLONAL CALC (NOMONO) [facility] ALBUMIN PERCENT 65.6 % (58.8-69.6) [facility] [facility] ALPHA 1 PERCENT 2.9 % (1.6-3.0) [facility] [place] [facility] ALPHA 2 PERCENT 14.1 % (7.2-13.2) H [facility] [place] [facility] BETA PERCENT 10.3 % (8.0-14.7) [facility] [facility] GAMMA PERCENT 7.1 % (7.3-16.4) L [facility] [facility] INTERPRETATION: [facility] [facility] MD THANIA 11/06/20Interpretation perf [place]med [place] [address] ID Date Data Source [id number] 11/12/2020 02:57:32 PM EST [facility] Name Value Range Interpretation Code Description Data Elyse rce(s) Supporting Document(s) PROTEIN,URINE 11 mg/dL [facility] URINE PROTEIN MAY BE FALSELY ELEVATEDDUR ING TREATMENT WITH AMINOGLYCOSIDESDUE TO METHOD INTERFERENCE. ALBUMIN URINE 50.7 % [facility] [facility] ALPH1 1 URINE 49.3 % [facility] [facility] TOTAL OTHER FRACTIONS ALPHA 2 URINE [facility] [facility] BETA URINE [facility] [place] [facility] [facility] GAMMA URINE [facility] INTERPRETATION: [facility] NO PARAPROTEIN DETECTED BY URINEPROTEIN ELECTROPHORESISMD BONITA 11/10/20Interpretation performed [facility] [address] ID Date Data Source [id number] 05/13/2020 03:38:34 PM EDT [facility], PCName: Radha JimenezDOB: 3Provider: Alfredo MeyerDomenicaPROSPER: 05/13/2020 AssessmentHistory of Present Illness:Mr. Jimenez is a very pleasant 79 year year old male who presents with a painful R>L GIL. He reports pain is improved but has moved to the left hip as well. He has some popping. Surgery was [address] Rubi. He notes at times it feels warm but denies fevers or chills. He has taken NSAIDS with some relief.He reports relief with aleve and PT/stretching. He does not feel it is normal and notes progressive loss of ability to ambulate and has continued pain. He wants to continue to do PT.He notes allergy to gold and mercury. He is concerned about a titanium allergy. He is wearing glasses and a smart watch with a metal band. He notes ankle swelling.Physical Examination:General: Patient appears well developed, well nourished, and in no acute distress. Patient is oriented to person, place, and time. The patient's mood is appropriate to situation. The patient's coordination is normal.Body Habitus: Average Gait: The patient walks with symmetric gait.Skin: Skin appears to be intact in both upper and lower extremities. There does not appear to be any ulceration or other non-healing wounds.R hip with lateral tenderness. Normal ROM, no crepitus /effusion/instability. Strength is normal. L hip with lateral tenderness. Normal ROM, no crepitus /effusion/instability. Strength is normal. Radiographs: Previously obtained x-rays were interpreted with the patient. demonstrating well fixed/well aligned total hip arthroplasty without evidence of failure or wear or loosening. There is a small amount of reactive cortical thickening distal to the lesser troch on the right. ESR/CRP normalAssessment and Plan:Patient was seen and evaluated in second opinion consultation for a painful R ANDL GIL that appears to be well functioning with troch bursitis. He may have some low back issues as well. We discussed we do not have left hip films and I would obtain them if this persists. I offered a second opinion with a spine or hip specialists and he declined. Discussed Candida implants with ceramic on poly bearing. Titanium level ordered to r/o metallosis and concern for allergy.I have recommended if no improvement then a bone scan but I do not think there is loosening.We discussed returning to PT to see if there is any further improvement.We had a long discussion that pain alone is in general a poor indication for revision surgery and is not reliably fixed with surgery. Signatures Electronically signed by : Hawk Meyer M.D.; May 13 2020 3:38PM EST (Author) Name Value Range Interpretation Code Description Data Elyse rce(s) Supporting Document(s) Procedure Social History Code Duration Value Status Description Data Source(s ) Alcohol intake 05/22/2021 12:00:00 AM EDT Current drinker of al cohol (finding) completed Current drinker of alcohol (finding) [facility] Smoking 04/20/2021 12:00:00 AM EDT Former Cigarette Smoker com pleted Former Cigarette Smoker [facility] ([facility] Smoking 04/07/2021 12:00:00 AM EDT Former Smoker completed Former Smoker eCW1 ([facility]) Smoking 04/07/2021 12:00:00 AM EDT Former Smoker completed Former Smoker eCW1 ([facility]) Smoking 04/07/2021 12:00:00 AM EDT Former Smoker completed Former Smoker eCW1 ([facility]) Alcohol intake 11/19/2020 12:00:00 AM EDT Yes completed [facility] Smoking 11/19/2020 12:00:00 AM EDT Former smoker completed Former smoker [facility] Vital Signs ID Date Data Source UNK Name Value Range Interpretation Code Description Data Source(s) Systolic blood pressure 115 mm[Hg] 115 mm[Hg] [facility] Diastolic blood pressure 69 mm[Hg] 69 mm[Hg] [facility] Body weight 113.762 kg 113.762 kg [facility] Body mass index (BMI) [Ratio] 37.04 kg/m2 37.04 kg/m2 [facility] Systolic blood pressure 128 mm[Hg] 128 mm[Hg] M EDENT ([facility], ) Diastolic blood pressure 72 mm[Hg] 72 mm[Hg] MEDENT ([facility]) Body height 68.5 [in_i] 68.5 [in_i] MEDENT ([facility]) 5'8.50" Body weight 250.00 [lb_av] 250.00 [lb_av] MEDEN T ([facility]) Body mass index (BMI) [Ratio] 37.5 kg/m2 37.5 k g/m2 [facility] ([facility]) [place] body weight 154 [lb_av] 154 [lb_av] MEDEN T ([facility]) Body weight 113.400 kg 113.400 kg MEDENT ([facility]) Body surface area Derived from formula 2.26 m2 2.26 m2 [facility] ([facility]) Body weight 251.00 [lb_av] 251.00 [lb_av] MEDEN T ([facility] Body weight 113.854 kg 113.854 kg [facility] Body height 68 [in_i] 68 [in_i] [facility] 5'8" Body mass index (BMI) [Ratio] 38.2 kg/m2 38.2 k g/m2 [facility] ([facility]) Systolic blood pressure 102 mm[Hg] 102 mm[Hg] M EDENT ([facility]) Diastolic blood pressure 67 mm[Hg] 67 mm[Hg] [facility] ([facility]) Heart rate 83 /min 83 /min [facility] [place] Heart rate 76 /min 76 /min eCW1 ([facility] Body weight 251.8 [lb_av] 251.8 [lb_av] eCW1 ([facility] Body height 68 [in_i] 68 [in_i] eCW1 ([facility]) Body mass index (BMI) [Ratio] 38.28 kg/m2 38.28 kg/m2 eCW1 ([facility]) Systolic blood pressure 101 mm[Hg] 101 mm[Hg] [facility] Diastolic blood pressure 64 mm[Hg] 64 mm[Hg] [facility] Heart rate 69 /min 69 /min [facility] Body weight 112.038 kg 112.038 kg [facility] Body mass index (BMI) [Ratio] 36.48 kg/m2 36.48 kg/m2 [facility] Patient Treatment Plan of Care Planned Activity Planned Date Details Description Data Source (s) Furosemide 20 MG Oral Tablet 08/16/2019 12:00:00 AM EST [facility] 0.5 ML dulaglutide 1.5 MG/ML Auto-Injector [Trulicity] 06/13/2019 12:00:00 AM EDT [facility] Carboxymethylcellulose Sodium 5 MG/ML Ophthalmic Solution [facility] Cholecalciferol 5000 UNT Oral Capsule [facility] Apple Cider Vinegar 600 MG Oral Capsule [facility] Naproxen sodium 220 MG Oral Tablet [facility]
--- OUTSIDE RECORDS SUMMARY | 2021-06-22 07:01 | CCD | Continuity of Care Document ---
Author Author Gael BIGGS MD Organization Unknown Address [address] [place] [address] Phone [phone] Care Team Providers Care Older Adult Social Work Specialist Name Role Phone Remi Meyer M.D. AUTM [phone] Wesley Juarez M.D. AUTM [phone] Addis Moreira M.D. AUTM [phone] Bairon Boswell M.D. AUTM [phone] Problems Active Problems Provider Date Malignant [...] medication just does not w ork 06/09/2007 [place] Extract 04/12/2019 Thimerosal 04/12/2019 Medications Active Medications [...] Negative Ua Clarity Not Entered Ua Specific [place] 1.020 1.003-1.030 Ua PH 5.0 5.0-7.5 Ua Bilirubin Negative Ua Urobilinogen 0.2 E.U./dL 0.0-1.0 Laboratory test finding 04/14/2021 [facility] [address] [place] [address] [phone] Total Psa Only 4.98 ng/mL High 0.00-4.10 BUN And Creatinine 04/14/2021 [facility] [address] [place] [address] [phone] BUN 43.0 mg/dL High 7.0-24.0 #Creat 04/14/2021 [facility] [address] [place] [address] [phone] Creatinine 1.99 mg/dL High 0.72-1.25 eGFR - Descent 38.5 Low >60.0 eGFR -- Non- Descent 31.7 Low >60.0 Procedures Date Code Description Status 04/20/2021 63610 Office/Outpatient Established Mo d MDM 30-39 Min Completed 04/20/2021 49510 Bladder Scan, Post Voiding Resid ual Urine Completed Medical Devices Description No Information Available Encounters Type Date Location Provider Dx Diagnosis Office Visit 04/20/2021 11:15a [facility]/ [facility] Calderon Biggs MD C61 [...] 11:00 am - Calderon Biggs MD at [facility]/ [facility] 04/20/2021 - Calderon Biggs [...]
--- OUTSIDE RECORDS SUMMARY | 2021-06-22 07:01 | CCD | Continuity of Care Document ---
Author Author Gael IBGGS MD Organization Unknown Address [address] [place] [address] Phone [phone] Care Team Providers Care Novelty Twister Operator Name Role Phone Remi Meyer M.D. AUTM [phone] Wesley Juarez M.D. AUTM [phone] Addis Moreira M.D. AUTM [phone] Bairon Boswell M.D. AUTM Problems Active Problems Provider Date Malignant tumor of prostate Calderon Biggs MD Onset: 01/03 Increased frequency of urination aClderon Biggs MD Onset: 03/12/2013 Balanitis xerotica obliterans [...] Negative Ua Clarity Not Entered Ua Specific [place] 1.020 1.003-1.030 Ua PH 5.0 5.0-7.5 Ua Bilirubin Negative Ua Urobilinogen 0.2 E.U./dL 0.0-1.0 Laboratory test finding 04/14/2021 [facility] [address] [place] [address] [phone] Total Psa Only 4.98 ng/mL High 0.00-4.10 BUN And Creatinine 04/14/2021 [facility] [address] [place] [address] [phone] BUN 43.0 mg/dL High 7.0-24.0 #Creat 04/14/2021 [facility] [address] [place] [address] [phone] Creatinine 1.99 mg/dL High 0.72-1.25 eGFR - Descent 38.5 Low >60.0 eGFR -- Non- Descent 31.7 Low >60.0 Procedures Date Code Description Status 04/20/2021 85572 Office/Outpatient Established Mo d MDM 30-39 Min Completed 04/20/2021 70414 Bladder Scan, Post Voiding Resid ual Urine Completed Medical Devices Description No Information Available Encounters Type Date Location Provider Dx Diagnosis Office Visit 04/20/2021 11:15a [facility]/ [facility] Calderon Biggs MD C61 [...] 11:00 am - Calderon Biggs MD at [facility]/ [facility] 04/20/2021 - Calderon Biggs [...]
--- NOTE | 2021-06-22 08:44 | ROOR ---
Patient Name: Gael Jimenez Procedure Date: 06/22/2021 8:16 AM Date of : 1940 Age: 80 Room: [facility] Gender: Male Note Status: Finalized Procedure: Colonoscopy Indications: High risk colon cancer surveillance: Personal history of colonic polyps Providers: Kevan Eubanks MD Referring MD: Addis Moreira MD Requesting Provider: Medicines: Monitored Anesthesia Care Complications: No immediate complications. Procedure: Pre-Anesthesia Assessment: - Prior to the procedure, a History and Physical was performed, and patient medications and allergies were reviewed. The patient is competent. The risks and benefits of the procedure and the sedation options and risks were discussed with the patient. All questions were answered and informed consent was obtained. Patient identification and proposed procedure were verified by the physician, the nurse and the anesthesiologist in the procedure room. Mental Status Examination: alert and oriented. Airway Examination: normal oropharyngeal airway and neck mobility. Respiratory Examination: clear to auscultation. CV Examination: normal. Prophylactic Antibiotics: The patient does not require prophylactic antibiotics. Prior Anticoagulants: The patient has taken no previous anticoagulant or antiplatelet agents. ASA Grade Assessment: II - A patient with mild systemic disease. After reviewing the risks and benefits, the patient was deemed in satisfactory condition to undergo the procedure. The anesthesia plan was to use monitored anesthesia care (MAC). Immediately prior to administration of medications, the patient was re-assessed for adequacy to receive sedatives. The heart rate, respiratory rate, oxygen saturations, blood pressure, adequacy of pulmonary ventilation, and response to care were monitored throughout the procedure. The physical status of the patient was re-assessed after the procedure. The Colonoscope was introduced through the anus with the intention of advancing to the cecum. The scope was advanced to the transverse colon before the procedure was aborted. Medications were given. The colonoscopy was performed without difficulty. The patient tolerated the procedure well. The quality of the bowel preparation was poor and unsatisfactory. No anatomical landmarks were photographed. Scope insertion time was 2 minutes. Scope withdrawal time was 6 minutes. The total duration of the procedure was 8 minutes. Findings: The perianal and digital rectal examinations were normal. Extensive amounts of semi-liquid semi-solid stool was found from descending colon to transverse colon, precluding visualization. Lavage of the area was performed using a large amount of sterile water, resulting in incomplete clearance with continued poor visualization. A 6 mm polyp was found in the sigmoid colon. The polyp was sessile. The polyp was removed with a jumbo cold forceps. Resection and retrieval were complete. Verification of patient identification for the specimen was done by the physician and nurse using the patient's name, date and medical record number. Estimated blood loss was minimal. Multiple small and large-mouthed diverticula were found in the sigmoid colon. There was no evidence of diverticular bleeding. Impression: - Preparation of the colon was poor. - Preparation of the colon was unsatisfactory. - Stool from descending to transverse colon. - One 6 mm polyp in the sigmoid colon, removed with a jumbo cold forceps. Resected and retrieved. - Moderate diverticulosis in the sigmoid colon. There was no evidence of diverticular bleeding. Recommendation: - Patient has a contact number available for emergencies. The signs and symptoms of potential delayed complications were discussed with the patient. Return to normal activities tomorrow. Written discharge instructions were provided to the patient. - High fiber diet. - Continue present medications. - Await pathology results. - Repeat colonoscopy at next available appointment (within 3 months) because the bowel preparation was poor and for surveillance based on pathology results. - Telephone GI clinic for pathology results in 2 weeks. - Telephone GI clinic to schedule appointment 1 - 2 weeks. Please call GI clinic @ [phone] for apppointment date and time. - Return to GI clinic if persistent symptoms or new symptoms. - Return to primary care physician. Procedure Code(s): --- Professional --- 13089, 52, Colonoscopy, flexible; with biopsy, single or multiple Diagnosis Code(s): --- Professional --- Z86.010, Personal history of colonic polyps K63.5, Polyp of colon K57.30, Diverticulosis of large intestine without perforation or abscess without bleeding CPT copyright 2019 [employer]. All rights reserved. The codes documented in this report are preliminary and upon building manager review may be revised to meet current compliance requirements. Kevan Eubanks MD Kevan Eubanks MD 06/22/2021 8:43:53 AM Electronically signed by Kevan Eubanks MD Number of Addenda: 0 Note Initiated On: 06/22/2021 8:16 AM Estimated Blood Loss: Estimated blood loss was minimal.
[2021-06-22] MEDS ORDERED: propofoL 200 MG/20 ML VIAL As Ordered ONE (08:47)
[2021-06-22] MEDS ORDERED: LIDOCAINE 2% 100MG/5ML SDV (FOR ANES.) As Ordered ONE (08:47)
[2021-06-22 09:17] VITALS: BP 130/54
== END 2021-06-22 09:58 | disposition home or self-care (01) ==
LOC: M OPP 06:57
PROVIDERS: ATTEND Internal Medicine Gastroenterology
DX: Z12.11 Encounter for screening for malignant neoplasm of colon (principal); Z86.010 Personal history of colon polyps; Z80.0 Family history of malignant neoplasm of digestive organs; K63.5 Polyp of colon; K57.30 Diverticulosis of large intestine without perforation or abscess without bleeding; K64.8 Other hemorrhoids; Z79.82 Long term (current) use of aspirin; Z79.899 Other long term (current) drug therapy; Z88.8 Allergy status to other drugs, medicaments and biological substances; Z95.5 Presence of coronary angioplasty implant and graft

== ENCOUNTER → 2021-08-17 | Outpatient (CLI) | payer MEDICARE ==
[~2021-08-17] MED LIST changes: +AFRI0.058; +ALLE10TA62 PO; +AREDS PO; +CENT1TAB PO; +IRON18TA PO; +LISI20TA20 PO; -NS 1,000 ML IV ONE; +RA T500C2 PO; +SENN-80 PO; +VITA-243 PO; +[UNRECOGNIZED DRUG - CODE] PO; +[UNRECOGNIZED DRUG - OTHER] PO
== END ==
LOC: M LABSMTC 10:22
PROVIDERS: ATTEND Anesthesiology
DX: Z01.812 Encounter for preprocedural laboratory examination (principal); Z20.822 Contact with and (suspected) exposure to COVID-19

== ENCOUNTER 2021-08-21 07:54 | Day surgery (SDC) | payer MEDICARE ==
[~2021-08-21] VITALS: Ht 172.7 cm; Wt 114.8 kg
[~2021-08-21 07:54] MED LIST changes: +LIDOCAINE 2% 100MG/5ML SDV (FOR ANES.) As Ordered ONE; -LISI10TA15 PO; +LISI10TA24 PO; -LISI20TA20 PO; +LISI20TA37 PO; +NS 1,000 ML IV ONE; +propofoL 200 MG/20 ML VIAL As Ordered ONE
[2021-08-21] MEDS ORDERED: propofoL 200 MG/20 ML VIAL As Ordered ONE (09:53)
[2021-08-21 10:30] VITALS: BP 124/60
== END 2021-08-21 10:50 | disposition home or self-care (01) ==
LOC: M OPP 07:54
PROVIDERS: ATTEND Internal Medicine Gastroenterology
DX: Z12.11 Encounter for screening for malignant neoplasm of colon (principal); Z86.010 Personal history of colon polyps; Z80.0 Family history of malignant neoplasm of digestive organs; D12.6 Benign neoplasm of colon, unspecified; K57.30 Diverticulosis of large intestine without perforation or abscess without bleeding; K64.8 Other hemorrhoids; Z79.82 Long term (current) use of aspirin; Z79.899 Other long term (current) drug therapy; Z88.0 Allergy status to penicillin; Z88.8 Allergy status to other drugs, medicaments and biological substances; Z91.018 Allergy to other foods; Z87.891 Personal history of nicotine dependence

== ENCOUNTER → 2021-12-30 | Outpatient (CLI) | payer MEDICARE ==
[~2021-12-30] MED LIST changes: +GASTROGRAFIN SOLUTION 30ML (Q9963) As Ordered ONE; -LIDOCAINE 2% 100MG/5ML SDV (FOR ANES.) As Ordered ONE; -NS 1,000 ML IV ONE; -propofoL 200 MG/20 ML VIAL As Ordered ONE
== END ==
LOC: M RAD 08:21
PROVIDERS: ATTEND Physician Assistant Medical
DX: R10.84 Generalized abdominal pain (principal); R63.4 Abnormal weight loss; I70.0 Atherosclerosis of aorta; Z96.643 Presence of artificial hip joint, bilateral; R91.1 Solitary pulmonary nodule; N28.1 Cyst of kidney, acquired
CPT/HCPCS: 74176; Q9963

== ENCOUNTER → 2022-01-26 | Outpatient (CLI) | payer MEDICARE ==
[~2022-01-26] MED LIST changes: -AFRI0.058; -GASTROGRAFIN SOLUTION 30ML (Q9963) As Ordered ONE; +OXYM15SP2
== END ==
LOC: M RAD 14:07
PROVIDERS: ATTEND Physician Assistant Medical
DX: R91.8 Other nonspecific abnormal finding of lung field (principal); I70.0 Atherosclerosis of aorta; I25.10 Atherosclerotic heart disease of native coronary artery without angina pectoris; M51.34 Other intervertebral disc degeneration, thoracic region; M19.011 Primary osteoarthritis, right shoulder; M19.012 Primary osteoarthritis, left shoulder; J84.9 Interstitial pulmonary disease, unspecified

== ENCOUNTER → 2022-02-04 | Outpatient (CLI) | payer MEDICARE ==
[2022-02-04 18:35] LABS: CALCIUM LEVEL 8.5 MG/DL (8.8-10.2); CREATININE FOR GFR 1.52 MG/DL (0.70-1.30); GLOMERULAR FILTRATION RATE 47.3 (>42); MAGNESIUM LEVEL 2.3 MG/DL (1.8-2.4); PHOSPHORUS LEVEL 2.8 MG/DL (2.5-4.9); POTASSIUM SERUM 4.3 MEQ/L (3.5-5.1)
== END ==
LOC: M LAB 16:28
PROVIDERS: ATTEND Internal Medicine Gastroenterology
DX: K59.00 Constipation, unspecified (principal)

== ENCOUNTER → 2022-07-14 | Outpatient (CLI) | payer MEDICARE ==
[2022-07-14 16:28] LABS: BASO % 0.4 % (0.0-1.0); EOS # 0.4 10^3/uL (0.0-0.5); EOS % 3.6 % (0.0-3.0); HEMATOCRIT 36.7 % (42.0-52.0); LYMPH % 18.6 % (24.0-44.0); MEAN CORPUSCULAR HEMOGLOBIN 32.2 pg (27.0-33.0); MEAN CORPUSCULAR HGB CONC 32.7 g/dl (32.0-36.5); MEAN CORPUSCULAR VOLUME 98.4 fl (80.0-96.0); MONO # 1.1 10^3/uL (0.0-0.8); MONO % 10.4 % (2.0-8.0); NEUTROPHILS % 66.7 % (36.0-66.0); PLATELET COUNT, AUTOMATED 263 10^3/uL (150-450); RED BLOOD COUNT 3.73 10^6/uL (4.30-6.10); WHITE BLOOD COUNT 10.5 10^3/uL (4.0-10.0)
[2022-07-14 17:03] LABS: CREATININE FOR GFR 1.69 MG/DL (0.70-1.30); GLOMERULAR FILTRATION RATE 41.9 (>42); POTASSIUM SERUM 4.8 MEQ/L (3.5-5.1)
== END ==
LOC: M LAB 15:43
PROVIDERS: ATTEND Internal Medicine Cardiovascular Disease
DX: I25.10 Atherosclerotic heart disease of native coronary artery without angina pectoris (principal); R22.42 Localized swelling, mass and lump, left lower limb

== ENCOUNTER → 2022-08-18 | Outpatient (CLI) | payer MEDICARE ==
[2022-08-18 16:10] LABS: BASO # 0.1 10^3/uL (0.0-0.2); BASO % 0.4 % (0.0-1.0); EOS # 0.4 10^3/uL (0.0-0.5); EOS % 3.5 % (0.0-3.0); HEMOGLOBIN 12.4 g/dl (13.5-17.5); LYMPH # 2.2 10^3/uL (1.5-5.0); LYMPH % 18.6 % (24.0-44.0); MEAN CORPUSCULAR HGB CONC 32.6 g/dl (32.0-36.5); MEAN CORPUSCULAR VOLUME 98.2 fl (80.0-96.0); MONO # 1.3 10^3/uL (0.0-0.8); MONO % 10.7 % (2.0-8.0); NEUTROPHILS # 7.8 10^3/uL (1.5-8.5); NEUTROPHILS % 66.3 % (36.0-66.0); PLATELET COUNT, AUTOMATED 285 10^3/uL (150-450); RED BLOOD COUNT 3.87 10^6/uL (4.30-6.10); WHITE BLOOD COUNT 11.8 10^3/uL (4.0-10.0)
[2022-08-18 16:24] LABS: CALCIUM LEVEL 9.1 MG/DL (8.3-10.6); CREATININE FOR GFR 1.66 MG/DL (0.70-1.30); GLOMERULAR FILTRATION RATE 42.8 (>42)
== END ==
LOC: M LAB 15:09
PROVIDERS: ATTEND Internal Medicine Cardiovascular Disease
DX: I25.10 Atherosclerotic heart disease of native coronary artery without angina pectoris (principal); R22.42 Localized swelling, mass and lump, left lower limb